=== PATIENT | female | born 1935 | race Caucasian/White ===

== ENCOUNTER → 2017-01-18 | Outpatient (CLI) | payer MEDICARE, BC ==
[~2017-01-18] MED LIST: FLUO20CA30 PO; LACT1CAP73 PO; LANS15CA5 PO; MELA3TAB30 PO; METF500T4 PO; METO25TA3 PO; MULT-1063 PO; OXYB5SYR2 PO; PRED5TAB PO; PRIM50TA30 PO
[2017-01-18 11:54] LABS: POTASSIUM 4.9 MEQ/L (3.6-5)
== END ==
LOC: LAB 11:15
PROVIDERS: ATTEND Family Medicine
DX: E87.5 Hyperkalemia (principal)
CPT/HCPCS: 36415; 84132

== ENCOUNTER → 2017-01-20 | Outpatient (CLI) | payer MEDICARE, BC ==
[2017-01-20 14:22] LABS: ANION GAP 8 MEQ/L (5-15); BUN/CREATININE RATIO 21 RATIO (6-26); CHLORIDE 100 MEQ/L (98-107); CO2 - CARBON DIOXIDE 28 MEQ/L (22-30); CREATININE 1.5 MG/DL (0.7-1.2); GLOMERULAR FILTRATION RATE 33; GLUCOSE 120 MG/DL (65-110); SODIUM 136 MEQ/L (134-144)
== END ==
LOC: LAB 13:39
PROVIDERS: ATTEND Family Medicine
DX: E87.5 Hyperkalemia (principal)
CPT/HCPCS: 36415; 80048

== ENCOUNTER 2017-02-04 13:13 | Emergency (ER) | payer MEDICARE, BC ==
[~2017-02-04] VITALS: Ht 152.4 cm; Wt 61.8 kg
[2017-02-04 13:13] VITALS: Ht 152.4 cm; Wt 61.8 kg
--- OUTSIDE RECORDS SUMMARY | 2017-02-04 13:17 | XMS REPORT ---
Author Author Tra Henderson Organization [facility] Address [address] [place] [address] Care Team Providers Care Supply Chain Logistics Manager Name Role Phone Tra Henderson Unavailable [phone] PROBLEMS Type Condition ICD9-CM Code EJY91-IV Code Onset Dates Condition Status SNOMED Code Problem Chest discomfort R07.89 Active 890331548 Problem Essential (primary) hypertension I10 Active 22506703 Assessment Chest discomfort R07.89 Dec, Active 569914984 Problem Type 2 diabetes mellitus without complications E11.9 Active 861892997 Problem Major depressive disorder, single episode, unspecified F32.9 Active [id number] ALLERGIES Substance Reaction Event Type Date Status cipro Unknown Non Drug Allergy Dec, Active Mobic Unknown Non Drug Allergy Dec, Active Macrobid Unknown Non Drug Allergy Dec, Active OxyIR Unknown Non Drug Allergy Dec, Active Calcium Unknown Non Drug Allergy Dec, Active Penicillin Unknown Non Drug Allergy Dec, Active Codeine Unknown Non Drug Allergy Dec, Active Darvon Unknown Non Drug Allergy Dec, Active Morphine Unknown Non Drug Allergy Dec, Active SOCIAL HISTORY No smoking Hx information available PLAN OF CARE VITAL SIGNS Height 5 ft 2 in in 2016-12-22 Weight 131 lbs 2016-12-22 BMI 23.96 kg/m2 2016-12-22 Oximetry 95% % 2016-12-22 Heart Rate 56 /min 2016-12-22 Blood pressure systolic 128 mm Hg 2016-12-22 Blood pressure diastolic 68 mm Hg 2016-12-22 MEDICATIONS Medication Instructions Dosage Frequency Start Date End Date Duration Status Metoprolol Tartrate 25 MG Orally Twice a day .5 tablet 12h Active Aspirin 81 MG Orally Once a day 1 tablet 24h Active Fluoxetine HCl 20 MG Orally Once a day 1 capsule in the morning 24h Active Prednisone 5 MG Orally Once a day 1 tablet with food or milk 24h Active Vitamin D3 2000 UNIT Orally Once a day 1 capsule 24h Active Ondansetron HCl 4 MG Orally four times daily 1 tablet Active Omeprazole 40 MG Orally Once a day 1 capsule 24h Active Primidone 50 MG Orally qhs 2 tab Active Metformin HCl 500 MG Orally Once a day 1 tablet with meals 24h Active Sulfamethoxazole-TMP DS 400 mg 1 tablet 24h Active RESULTS Name Result Date Reference Range AtriaECW PROCEDURES Procedure Date Ordered Related Diagnosis Body Site ELECTROCARDIOGRAM, COMPLETE Dec 22, 2016 Office Visit, Est Pt., Level 4 Dec 22, 2016 IMMUNIZATIONS No Known Immunizations
--- OUTSIDE RECORDS SUMMARY | 2017-02-04 13:17 | XMS REPORT | Continuity of Care Document ---
Author Author [facility] Organization [facility] Address Unknown Phone Unavailable Support Name Relationship Address Phone MEY OLIVER MD Caregiver [address] [place] [address] Unavailable TIFFANIE BOWIE MD Caregiver [address] [place] [address] Unavailable RICK HOLLAND Next Of Kin [address] [place] [address] Insurance Providers Guarantor BishopCorey Pritesh Address [address] [place] [address] Email DENIED 16 Payer [facility] Policy Number [id number] Subscriber's Name Corey Holland Relationship 18 Self Group Number [id number] Payer Medicare Policy Number [id number] Subscriber's Name Corey Holland Relationship 18 Self Advance Directives Directive Response Recorded Date/Time Ordered Resuscitation Status Full Code, unverified 12/28/16 1:01pm Resuscitation Documents on File No 12/29/16 8:12am DPOA for Healthcare Only No 12/29/16 8:12am Living Will No 12/29/16 8:12am Problems Active Problems Medical Problem Onset Date Status Fall on same level Unknown Acute Fracture of orbital floor, blow-out, left, closed Unknown Acute Laceration of left orbit Unknown Acute Medications Current Home Medications Medication Dose Units Route Directions Days Qty Instructions Start Date Fluoxetine Hcl (Prozac) 20 Mg Capsule 1 Cap Oral Bedtime 03/31/15 Lactobacillus Combination No.4 (Probiotic) 1 Each Capsule 1 Cap Oral Daily 11/09/15 Lansoprazole (Prevacid) 15 Mg Capsule. 1 Cap Oral Daily 30 Capsule 11/09/15 Melatonin 3 Mg Tablet 1 Tab Oral Bedtime 30 Tablet 12/29/16 Metformin Hcl 500 Mg Tablet 1 Tab Oral Daily 90 11/09/15 Metoprolol Succinate (Toprol Xl) 25 Mg Tab.er.24h 1 Tab Oral Twice A Day 03/31/15 Multivitamin (One Daily Multivitamin) 1 Each Tablet 1 Tab Oral Daily 03/31/15 Oxybutynin (Oxybutynin Chloride) 5 Mg/5 Ml Syrup 5 Mg Oral Twice A Day Take 5 mg, by mouth, twice a day. 12/29/16 Prednisone 5 Mg Tablet 1 Tab Oral Daily 90 11/09/15 Primidone 50 Mg Tablet 2 Tab Oral Bedtime 60 11/09/15 Social History Social History Problem Response Recorded Date/Time Onset Date Status Chewing Tobacco Status No 12/29/2016 8:19am Not Applicable Not Applicable Hx Substance Use No 12/29/2016 8:19am Not Applicable Not Applicable Hx Alcohol Use No 12/29/2016 8:19am Not Applicable Not Applicable Has the pt used tobacco in the last 12 months No 12/29/2016 8:19am Not Applicable Not Applicable Tobacco Usage none 04/07/2015 9:27pm Not Applicable Not Applicable Query Response Start Date Stop Date Smoking Status Former smoker Hospital Discharge Instructions No hospital discharge instructions. Plan of Care Discharge Date 12/29/16 9:20am Prescriptions See Medication Section Functional Status Query Response Date Recorded Ability to complete ADL's impeded by No change December 29, 2016 8:12am Allergies, Adverse Reactions, Alerts Allergen Type Severity Reaction Status Last Updated Penicillin Allergy Intermediate HIVES/RASH Active 12/29/16 Morphine Allergy Intermediate VOMITING Active 12/29/16 Codeine Allergy Intermediate "WOOZY" Active 12/29/16 Ciprofloxacin Adverse Reaction Intermediate NAUSEA Active 12/29/16 grass pollen Allergy Unknown Active 12/29/16 Immunizations Query Response on File Recorded Date/Time Hx Influenza Vaccination No 12/29/16 8:19am Hx Pneumococcal Vaccination Y 201412/29/16 8:19am Hx Influenza Vaccination No 12/29/16 8:19am Hx Tetanus Diptheria Y 03/31/15 03/31/15 12:36am Vital Signs Acute Vital Signs Vital Response Date/Time Temperature (Fahrenheit) 98.3 deg F (96.8 - 99.1) 12/29/2016 7:56am Temperature (Calculated Celsius) 36.23948 degrees C (36.0 - 37.3) 12/29/2016 7:56am Temperature Source Oral 12/29/2016 7:56am Pulse Rate (adult) 47 bpm (60 - 100) 12/29/2016 7:56am Respiratory Rate 16 breaths/min (10 - 20) 12/29/2016 7:56am O2 Sat by Pulse Oximetry 99 % (90 - 100) 12/29/2016 7:56am Oxygen Delivery Method Room Air 12/29/2016 7:56am Blood Pressure 146/66 mm Hg 12/29/2016 7:56am Blood Pressure Source Automatic Cuff 12/29/2016 7:56am Height (Feet) 4 feet 12/29/2016 7:56am Height (Inches) 11.00 inches 12/29/2016 7:56am Weight (Kilograms) 60.200 kg 12/29/2016 7:56am Body Mass Index (BMI) 26.8 12/29/2016 7:56am Results Laboratory Results Test Name Result Units Flags Reference Collection Date/Time Result Date/ Time Comments White Blood Count 7.2 T/MM3 4.5-11.0 12/29/2016 8:15am 12/29/2016 8: 23am Red Blood Count 4.13 M/MM3 4.00-5.20 12/29/2016 8:15am 12/29/2016 8: 23am Hemoglobin 13.1 GM/DL 12-16 12/29/2016 8:1512/29/2016 8:23am Hematocrit 39.1 % 36-46 12/29/2016 8:1512/29/2016 8:23am Mean Corpuscular Volume 94.7 UM3 80-100 12/29/2016 8:15am 12/29/2016 8: 23am Mean Corpuscular Hemoglobin 31.7 UUG 26-34 12/29/2016 8:15am 2016 8:23am Mean Corpuscular Hemoglobin Concent 33.5 GM/DL 31-37 12/29/2016 8:1512/29/2016 8:23am RDW Standard Deviation 39.8 FL 36.9-50.2 12/29/2016 8:15am 12/29/2016 8 :23am Platelet Count 122 T/MM3 L 130-400 12/29/2016 8:15am 12/29/2016 8:23am Mean Platelet Volume 9.7 UM3 9.4-12.4 12/29/2016 8:15am 12/29/2016 8: 23am Neutrophils (%) (Auto) 54.1 % 33-66 12/29/2016 8:1512/29/2016 8: 23am Lymphocytes (%) (Auto) 28.0 % 23-45 12/29/2016 8:1512/29/2016 8: 23am Monocytes (%) (Auto) 11.6 % H 0-9.0 12/29/2016 8:1512/29/2016 8:23am Eosinophils (%) (Auto) 5.0 % H 0-4 12/29/2016 8:1512/29/2016 8:23am Basophils (%) (Auto) 0.7 % 0-2 12/29/2016 8:1512/29/2016 8:23am Immature Granulocyte % (Auto) 0.6 % H 0.0-0.5 12/29/2016 8:2016 8:23am Absolute Neutrophils (auto) 3.9 T/MM3 1.8-7.7 12/29/2016 8:152016 8:23am Absolute Lymphocytes (auto) 2.0 T/MM3 1-4.8 12/29/2016 8:152016 8:23am Absolute Monocytes (auto) 0.8 T/MM3 0-0.8 12/29/2016 8:1512/29/2016 8:23am Absolute Eosinophils (auto) 0.4 T/MM3 0-0.5 12/29/2016 8:152016 8:23am Absolute Basophils (auto) 0.1 T/MM3 0-0.2 12/29/2016 8:12/29/2016 8:23am Absolute Immature Granulocyte (auto 0.04 T/MM3 H 0.00-0.03 12/29/2016 8: 12/29/2016 8:23am Icterus Index < 2 0-7 12/29/2016 8:1512/29/2016 8:32am Chemistry Specimen Hemolysis 46 H 0-25 12/29/2016 8:1512/29/2016 8: 32am 26-70: Specimen Exhibited Slight Hemolysis - can falsely elevate K (Potassium) and Urine Protein. Turbidity < 20 0-20 12/29/2016 8:1512/29/2016 8:32am Sodium Level 139 MEQ/L 134-144 12/29/2016 8:15am 12/29/2016 8:32am Potassium Level 5.0 MEQ/L 3.6-5 12/29/2016 8:15am 12/29/2016 8:32am Chloride Level 104 MEQ/L 98-107 12/29/2016 8:15am 12/29/2016 8:32am Carbon Dioxide Level 28 MEQ/L 22-30 12/29/2016 8:15am 12/29/2016 8: 32am Anion Gap 7 MEQ/L 5-15 12/29/2016 8:15am 12/29/2016 8:32am Blood Urea Nitrogen 34.0 MG/DL H 7-17 12/29/2016 8:15am 12/29/2016 8: 32am Creatinine 1.3 MG/DL H 0.7-1.2 12/29/2016 8:15am 12/29/2016 8:32am BUN/Creatinine Ratio 26 RATIO 6-26 12/29/2016 8:15am 12/29/2016 8:32am Glomerular Filtration Rate Calc 39 12/29/2016 8:15am 12/29/2016 8: 32am Glucose Level 85 MG/DL 65-110 12/29/2016 8:15am 12/29/2016 8:32am Calculated Osmolality 275 MOSM/KG 261-280 12/29/2016 8:15am 12/29/2016 8:32am Calcium Level 8.9 MG/DL 8.4-10.2 12/29/2016 8:15am 12/29/2016 8:32am Procedures Procedure Status Date Provider(s) Routine venipuncture Completed 11/29/16 Assay of serum potassium Completed 11/29/16 Routine venipuncture Completed 12/01/16 Assay of serum potassium Completed 12/01/16 Ectropion repair Active 12/29/16 TIFFANIE BOWIE MD Encounters Encounter Location Arrival/Admit Date Discharge/Depart Date Attending Provider Departed [facility] 12/29/16 7:28am 12/29/16 9: 20am TIFFANIE BOWIE MD Registered [facility] 12/01/16 10:02am MEY OLIVER MD Registered [facility] 11/29/16 12:06pm MEY OLIVER MD
--- NOTE | 2017-02-04 13:30 | NUR ---
PROVIDER Winter FIELDS COLD ROLL INSPECTOR IN TO SEE PATIENT.
--- NOTE | 2017-02-04 13:39 | ERPDOC ---
Departure Disposition Decision Date: Feb 04, 2017 Disposition Decision Time: 15:22 (JOSE J FIELDS APRN) Disposition: 01 DISCHARGED HOME, SELF-CARE Impression Impression (JOSE J FIELDS APRN) Impression: Primary Impression: Rupture of biceps tendon Additional Impression: Transaminitis Condition: Stable Seen By: Mid-level only (JOSE J FIELDS APRN) Referrals: MEY OLIVER MD (Family) Patient Instructions: Splint Care (ED), Tendon Rupture (ED) Problems/Meds/Labs Reviewed?: Yes Medications reviewed and manag: Yes (JOSE J FIELDS APRN) Additional Instructions: 1. You need to call Dr. Lynch office in the morning and tell them you were seen in the ER today for a suspected bicep tendon injury and that the ER provider spoke with Rodo Uriostegui who recommended coming in to the clinic within 2 days for an evaluation. Dr. Norris's phone number is [phone]. 2. Take Tramadol as prescribed for pain. DO NOT TAKE ANY IBUPROFEN OR TYLENOL. 3. You need to ice your arm as much as you can for 15-20 minutes every 2 hours while awake. Keep arm elevated or in sling. 4. You need to call Dr. Tomas office in the morning and tell him you were seen in ER and your liver enzymes were elevated and that you were advised to stop taking Tylenol and your stain. You need to stop taking Tylenol and the atorvastatin as they can cause increased liver enzymes. Follow up care ordered?: Yes Mental Status: Alert, Oriented (JOSE J FIELDS APRN) Scripts Tramadol HCl (Ultram) 50 Mg Tablet 50 MG PO Q4HR Y for PAIN, #14 TAB Take 1/2 - 1 tablet, by mouth, every 4 hours as needed for pain. Prov: JOSE J FIELDS APRN 02/04/17 HPI - Upper Extremity General Chief Complaint: Upper Extremity Injury Stated Complaint: SWOLLEN BICEPT, UPPER ABD PAIN Time Seen by MD: 13:27 Source: patient, family Exam Limitations: no limitations (JOSE J FIELDS APRN) Time Seen by MD: 13:27 (ARIAN CARRANZA MD) HPI - Upper Extremity Initial Comments Payton is an 81 year old female who reports injury to her left upper arm a few days ago when trying to get up from a chair, screamed in pain because it hurt at time of injury, but then subsided, was just sore. A few days later she went to pull up a blanket over herself and felt more pain to that arm and it then swelled up and bruised excessively. patient is on plavix for coronary artery stents. When son came and saw her arm he decided to bring her to the ER for evaluation. Concurrently son reports patient had complained of severe epigastric pain last night and called him. She does take a daily PPI. Denies n/v /d. Denies bloody or dark stools. Denies weakness or dizziness. Lives next door to her son. Occurred At: home Onset/Timing: Gradual Duration: 1 week Pain/Severity Scale: Now: 6/10 (arm) Pain/Injury Location: left arm 1 - ecchymosis and swelling Method of Injury/Context: twisted Quality: sharpness Associated Symptoms: weakness (JOSE J FIELDS APRN) Allergies: Coded Allergies: Penicillins (Verified Allergy, Intermediate, HIVES/RASH, 02/04/17) codeine (Verified Allergy, Intermediate, "WOOZY", 02/04/17) morphine (Verified Allergy, Intermediate, VOMITING, 02/04/17) grass pollen (Verified Allergy, Unknown, 02/04/17) PER H&P ciprofloxacin (Verified Adverse Reaction, Intermediate, NAUSEA, 02/04/17) Past History Past Medical History Metabolic: hypertension ENMT: cataracts Cardiac: CAD GI: constipation Female: UTI Neurological: fibromyalgia Hematologic: anemia Psychological: anxiety, depression (JOSE J FIELDS APRN) Surgical History General: appendix, gallbladder, tonsils Cardiac: cardiac cath, cardiac stent Reproductive/: hysterectomy, other (cystocele) Joint: hip (bilat), knee (left) (JOSE J FIELDS APRN) Vaccines Hx Influenza Vaccination: No Hx Pneumococcal Vaccination: Yes (2014) Hx Tetanus Diptheria: Yes (03/31/15) (JOSE J FIELDS APRN) Social History Smoking Status: Never smoker Does patient use chewing tobac: No Second Hand Exposure: No Substance Use Type: does not use Alcohol Intake: none Marital Status: Housing: house Household Members: none (JOSE J FIELDS APRN) Review of Systems Constitutional Constitutional: weakness (left arm), DENIES: dizziness, fever (FIELDS,JOSE J LINING CLOSER ) ENMT Mouth/Throat: DENIES: sore throat (FIELDS,JOSE J LINING CLOSER) Cardiovascular Cardiac: DENIES: chest pain, dyspnea on exertion (FIELDS,JOSE J LINING CLOSER) Pulmonary Respiratory: DENIES: cough, dyspnea (FIELDSJOSE J LINING CLOSER) GI Upper Abdomen: DENIES: nausea, vomiting Lower Abdomen: constipation, DENIES: diarrhea (FIELDS,JOSE J LINING CLOSER) Musculoskeletal General: pain (left arm), weakness (left arm) (DIAMONDJOSE J LINING CLOSER) Integumentary Skin: other (bruising left upper arm), DENIES: rash (FIELDS,JOSE J LINING CLOSER) Neurological General: weakness (left arm), DENIES: headache (FIELDS,JOSE J LINING CLOSER) Psychiatric Psychiatric: anxiety, depression (HALIE FIELDSARA LINING CLOSER) Hematologic/Lymphatic Hematologic/Lymphatic: anemia, easy bruising (DIAMONDJOSE J LINING CLOSER) All other Systems All Other Systems: Reviewed and Negative (JOSE J FIELDS LINING CLOSER) Physical Exam General General Nourishment: well nourished, well developed, appears stated age, no acute distress (HALIE FIELDSARA LINING CLOSER) Vitals and Pain First Documented Vital Signs Date Time Temp Pulse Resp B/P Pulse Ox O2 Delivery O2 Flow Rate FiO2 02/04/17 13:13 100.4 62 16 145/65 98 Room Air (ARIAN CARRANZA MD) Vitals and Pain Weight: Kilograms: Height (feet): 4 Height (inches): 11.00 Triage Pain Scale: (HALIE FIELDSARA LINING CLOSER) Eyes (brief) Eyes Brief: not found: scleral icterus (HALIE FIELDSARA LINING CLOSER) ENMT (brief) ENMT Brief: FOUND: mucosa moist (DIAMONDJOSE J LINING CLOSER) Respiratory (brief) Respiratory: FOUND: clear all hoang, equal bilaterally (FIELDS,JOSE J LINING CLOSER) Cardiovascular (brief) Cardiac: FOUND: regular rate, regular rhythm (DIAMONDJOSE J LINING CLOSER) Abdomen (brief) Abdominal Brief: FOUND: bowel normo active x4, soft, tender (mild epigastric) ( DIAMOND,JOSE J LINING CLOSER) Musculoskeletal (brief) Musculoskeletal Brief: FOUND: tenderness (left antecubital insertion tender, widespread upper arm ecchymosis, no ability to use bicep, swollen firm area to upper arm) (JOSE J FIELDS APRN) Integumentary (brief) Integumentary Brief: FOUND: dry, other (bruising left upper arm), pink, warm, NOT FOUND: rash (JOSE J FIELDS APRN) Psychiatric (brief) Psychiatric Brief: FOUND: alert, attentive, normal affect, oriented (JOSE J FIELDS APRN) Differential Diagnoses Considering: Fracture, Flexor Tendon Injury, Trauma, Other (JOSE J FIELDS APRN) Procedures Procedures Performed Procedures Performed: Splinting (JOSE J FIELDS APRN) Splinting Procedure Splint : Site: left upper arm Pre-placement NV: FOUND: cap refill < 3 sec, good movement, good sensation Hand-Made Type: orthoglass Splint: posterior arm Post-placement NV: FOUND: cap refill < 3 sec, good movement, good sensation Applied by: PA/RODY Comments Sling applied (JOSE J FIELDS APRN) Progress Results/Orders Orders Procedure Category Date Status Time Elbow Left 2 View RAD 02/04/17 Resulted Humerus Left 2 View RAD 02/04/17 Resulted Cbc W/Auto LAB 02/04/17 Complete Diff-Reflex Manual Cmp - Comprehensive LAB 02/04/17 Complete Metabolic Lipase LAB 02/04/17 Complete EKG EKG 02/04/17 Taken Troponin I W LAB 02/04/17 Complete Hemolysis Index Mag-Al + Sim Xs PHA 02/04/17 Complete (Maalox Plus Xs) 13:45 Platelet Function LAB 02/04/17 Complete P2y12 13:43 Hepatitis Acute Panel LAB 02/04/17 In Process - Batch 14:38 (ARIAN CARRANZA MD) Orders Procedure Category Date Status Time Elbow Left 2 View RAD 02/04/17 Resulted Humerus Left 2 View RAD 02/04/17 Resulted Cbc W/Auto LAB 02/04/17 Complete Diff-Reflex Manual Cmp - Comprehensive LAB 02/04/17 Complete Metabolic Lipase LAB 02/04/17 Complete EKG EKG 02/04/17 Logged Troponin I W LAB 02/04/17 Complete Hemolysis Index Mag-Al + Sim Xs PHA 02/04/17 Complete (Maalox Plus Xs) 13:45 Platelet Function LAB 02/04/17 Complete P2y12 13:43 Hepatitis Acute Panel LAB 02/04/17 In Process - Batch 14:38 (JOSE J FIELDS APRN) Lab Results Laboratory Tests Test 02/04/17 13:39 02/04/17 13:44 02/04/17 14:16 Hepatitis A IgM Antibody Pending Hepatitis B Surface Antigen Pending Hepatitis B Core IgM Antibody Pending Hepatitis C Antibody Pending White Blood Count 7.0T/MM3 Red Blood Count 3.74M/MM3 Hemoglobin 12.0GM/DL Hematocrit 35.8% Mean Corpuscular Volume 95.7UM3 Mean Corpuscular Hemoglobin 32.1UUG Mean Corpuscular Hemoglobin Concent 33.5GM/DL RDW Standard Deviation 42.6FL Platelet Count 245T/MM3 Mean Platelet Volume 9.1UM3 Immature Granulocyte % (Auto) 0.3% Neutrophils (%) (Auto) 71.1% Lymphocytes (%) (Auto) 15.6% Monocytes (%) (Auto) 9.0% Eosinophils (%) (Auto) 3.6% Basophils (%) (Auto) 0.4% Absolute Immature Granulocyte (auto 0.02T/MM3 Absolute Neutrophils (auto) 5.0T/MM3 Absolute Lymphocytes (auto) 1.1T/MM3 Absolute Monocytes (auto) 0.6T/MM3 Absolute Eosinophils (auto) 0.3T/MM3 Absolute Basophils (auto) 0.0T/MM3 Turbidity < 20 Sodium Level 134MEQ/L Potassium Level 5.1MEQ/L Chloride Level 95MEQ/L Carbon Dioxide Level 30MEQ/L Anion Gap 9MEQ/L Blood Urea Nitrogen 36.0MG/DL Creatinine 1.3MG/DL Glomerular Filtration Rate Calc 39 BUN/Creatinine Ratio 28RATIO Glucose Level 134MG/DL Calculated Osmolality 268MOSM/KG Calcium Level 8.4MG/DL Total Bilirubin 0.90MG/DL Icterus Index < 2 Aspartate Amino Transf (AST/SGOT) 953U/L Alanine Aminotransferase (ALT/SGPT) 489U/L Alkaline Phosphatase 181U/L Troponin I < 0.012ng/ml Total Protein 6.3G/DL Albumin 3.6G/DL Globulin 2.7G/DL Albumin/Globulin Ratio 1.3RATIO Lipase 211U/L Chemistry Specimen Hemolysis < 15 Platelet Function P2Y12 React Units 127PRU (ARIAN CARRANZA MD) Lab Results Laboratory Tests Test 02/04/17 13:39 02/04/17 13:44 02/04/17 14:16 Hepatitis A IgM Antibody Pending Hepatitis B Surface Antigen Pending Hepatitis B Core IgM Antibody Pending Hepatitis C Antibody Pending White Blood Count 7.0T/MM3 Red Blood Count 3.74M/MM3 Hemoglobin 12.0GM/DL Hematocrit 35.8% Mean Corpuscular Volume 95.7UM3 Mean Corpuscular Hemoglobin 32.1UUG Mean Corpuscular Hemoglobin Concent 33.5GM/DL RDW Standard Deviation 42.6FL Platelet Count 245T/MM3 Mean Platelet Volume 9.1UM3 Immature Granulocyte % (Auto) 0.3% Neutrophils (%) (Auto) 71.1% Lymphocytes (%) (Auto) 15.6% Monocytes (%) (Auto) 9.0% Eosinophils (%) (Auto) 3.6% Basophils (%) (Auto) 0.4% Absolute Immature Granulocyte (auto 0.02T/MM3 Absolute Neutrophils (auto) 5.0T/MM3 Absolute Lymphocytes (auto) 1.1T/MM3 Absolute Monocytes (auto) 0.6T/MM3 Absolute Eosinophils (auto) 0.3T/MM3 Absolute Basophils (auto) 0.0T/MM3 Turbidity < 20 Sodium Level 134MEQ/L Potassium Level 5.1MEQ/L Chloride Level 95MEQ/L Carbon Dioxide Level 30MEQ/L Anion Gap 9MEQ/L Blood Urea Nitrogen 36.0MG/DL Creatinine 1.3MG/DL Glomerular Filtration Rate Calc 39 BUN/Creatinine Ratio 28RATIO Glucose Level 134MG/DL Calculated Osmolality 268MOSM/KG Calcium Level 8.4MG/DL Total Bilirubin 0.90MG/DL Icterus Index < 2 Aspartate Amino Transf (AST/SGOT) 953U/L Alanine Aminotransferase (ALT/SGPT) 489U/L Alkaline Phosphatase 181U/L Troponin I < 0.012ng/ml Total Protein 6.3G/DL Albumin 3.6G/DL Globulin 2.7G/DL Albumin/Globulin Ratio 1.3RATIO Lipase 211U/L Chemistry Specimen Hemolysis < 15 Platelet Function P2Y12 React Units 127PRU (DIAMOND,JOSE J LINING CLOSER) Medications Current ED Medications Al Hydroxide/Mg Hydroxide (Maalox Plus Xs) 30 ml O ONCE PO Last administered on 02/04/17t 15:05; Start 02/04/17 at 13:45; Stop 02/04/17 at 13:46; Status DC (ARIAN CARRANZA MD) Medications Current ED Medications Al Hydroxide/Mg Hydroxide (Maalox Plus Xs) 30 ml O ONCE PO Last administered on 02/04/17t 15:05; Start 02/04/17 at 13:45; Stop 02/04/17 at 13:46; Status DC (JOSE J FIELDS APRN) Progress Progress Patient's history and exam discussed with LINING CLOSER. Labs and Xrays reviewed. Agree with care given in ER and discharge plan as outlined. (ARIAN CARRANZA MD) EKG EKG : Rate: 60-100 Rhythm: sinus [place]: left QRS: non-specific block Intervals: normal ST/T: depressed, inverted Interpreted by: signing physician EKG Comments Depressed T waves in inferior leads (II,III,aVF)and inverted T waves with ST segment depression in inferior and lateral chest leads -- no prior EKG to compare. (ARIAN CARRANZA MD) Consult/PCP Consult/PCP #1: Physician Contacted: Rodo CRESPO Time Called: 14:30 Time of first response: 14:31 Type of discussion: Phone Consult/PCP Discussion Details Suspected bicep tendon rupture- rec posterior splint/sling f/u clinic Consult/PCP #2: Physician Contacted: Jeremie Zaman Unable to contact-checked out to hospitalist for weekend (JOSE J FIELDS APRN) Xray Xray #1: Xray: Elbow L Interpretation: Normal (no fracture, soft tissue swelling), Reviewed Written Report Xray #2: Xray: Humerus L Interpretation: Normal (soft tissue swelling), Reviewed Written Report (ARIAN CARRANZA MD) JOSE J FIELDS APRN Feb 04, 2017 13:39 ARIAN CARRANZA MD Feb 04, 2017 16:18
[2017-02-04] MEDS ORDERED: MAG-AL + SIM XS 30 ML UDC PO ONE (13:45)
[2017-02-04] MEDS ORDERED: METO25TA6 PO (13:47)
[2017-02-04] MEDS ORDERED: OXYB5TAB10 PO (13:47)
[2017-02-04] MEDS ORDERED: PRED1TAB PO (13:47)
[2017-02-04] MEDS ORDERED: CLOP75TA33 PO (13:49)
[2017-02-04] MEDS ORDERED: OMEP40CA52 PO (13:49)
[2017-02-04] MEDS ORDERED: ATOR20TA59 PO (13:49)
[2017-02-04] MEDS ORDERED: NITR0.4T PO (13:52)
[2017-02-04] MEDS ORDERED: ASPI-1085 PO (13:52)
[2017-02-04] MEDS ORDERED: ONDA-55 PO (13:52)
[2017-02-04] MEDS ORDERED: BIOT5000 PO (13:52)
[2017-02-04] MEDS ORDERED: CEPH500C2 PO (13:52)
[2017-02-04] MEDS ORDERED: CHOL100018 PO (13:53)
[2017-02-04 13:55] LABS: BASOPHILS % (AUTO) 0.4 % (0-2); EOSINOPHILS # (AUTO) 0.3 T/MM3 (0-0.5); EOSINOPHILS % (AUTO) 3.6 % (0-4); HCT - HEMATOCRIT 35.8 % (36-46); IMMATURE GRANULOCYTE # (AUTO) 0.02 T/MM3 (0.00-0.03); IMMATURE GRANULOCYTE % (AUTO) 0.3 % (0.0-0.5); LYMPHOCYTES # (AUTO) 1.1 T/MM3 (1-4.8); LYMPHOCYTES % (AUTO) 15.6 % (23-45); MEAN CORPUSCULAR HGB 32.1 UUG (26-34); MEAN CORPUSCULAR HGB CONC(MCHC 33.5 GM/DL (31-37); MEAN CORPUSCULAR VOLUME 95.7 UM3 (80-100); MEAN PLATELET VOLUME 9.1 UM3 (9.4-12.4); MONOCYTES # (AUTO) 0.6 T/MM3 (0-0.8); NEUTROPHILS % (AUTO) 71.1 % (33-66); RED BLOOD COUNT 3.74 M/MM3 (4.00-5.20)
[2017-02-04 14:01] LABS: ALBUMIN 3.6 G/DL (3.5-5.0); ALBUMIN/GLOBULIN RATIO 1.3 RATIO (1.1-2.2); ALKALINE PHOSPHATASE 181 U/L (38-126); ALT (SGPT) 489 U/L (9-52); ANION GAP 9 MEQ/L (5-15); BUN/CREATININE RATIO 28 RATIO (6-26); CALCIUM 8.4 MG/DL (8.4-10.2); CHLORIDE 95 MEQ/L (98-107); CO2 - CARBON DIOXIDE 30 MEQ/L (22-30); CREATININE 1.3 MG/DL (0.7-1.2); GLOMERULAR FILTRATION RATE 39; GLUCOSE 134 MG/DL (65-110); LIPASE 211 U/L (23-300); POTASSIUM 5.1 MEQ/L (3.6-5); SODIUM 134 MEQ/L (134-144); TOTAL PROTEIN 6.3 G/DL (6.3-8.2)
[2017-02-04 14:07] LABS: AST (SGOT) 953 U/L (14-36)
--- NOTE | 2017-02-04 14:26 | DI ---
Indication: ITS.REASON: INJURY, BRUISING PROCEDURE: HUMERUS LEFT 2 VIEW: Encounter: Initial Comparison: None Findings: There is no acute fracture, dislocation or malalignment identified. Apparent soft tissue swelling overlying the mid to distal humerus. Impression: No acute osseous abnormality. Soft tissue swelling. .
--- NOTE | 2017-02-04 14:27 | DI ---
Indication: ITS.REASON: INJURY, PAIN PROCEDURE: ELBOW LEFT 2 VIEW: Encounter: Initial Comparison: None Findings: There is no acute fracture, dislocation or malalignment identified. Impression: No acute osseous abnormality. .
[2017-02-04] MEDS ORDERED: TRAM50TA53 PO (15:30)
--- NOTE | 2017-02-04 15:40 | NUR ---
SPLINT JOI WRAPS REWRAPPED BECAUSE PT WAS COMPLAINING FINGERS WERE NUMB. FEELS BETTER NOW
--- NOTE | 2017-02-04 15:47 | NUR ---
DISMISSAL INSTRUCTIONS REVIEWED WITH PT. SHE VERBALIZES UNDERSTANDING. PT LIVES NEXT DOOR TO HER SON. DISCHARGED AMB
[2017-02-04 15:48] VITALS: BP 114/57; PULSE 60; RESP 16; TEMP 99.4; O2SAT 97
== END 2017-02-04 15:48 | disposition home or self-care (01) ==
LOC: ED 13:13
DX: S46.212A Strain of muscle, fascia and tendon of other parts of biceps, left arm, initial encounter (principal); R74.0 Nonspecific elevation of levels of transaminase and lactic acid dehydrogenase [LDH]; Z79.01 Long term (current) use of anticoagulants; X58.XXXA Exposure to other specified factors, initial encounter; Y93.9 Activity, unspecified; Y92.009 Unspecified place in unspecified non-institutional (private) residence as the place of occurrence of the external cause; Y99.8 Other external cause status
CPT/HCPCS: 36415; 73060; 73070; 80053; 80074; 83690; 84484; 85025; 85576; 93005; 99283; A9270

== ENCOUNTER → 2017-02-06 | Outpatient (CLI) | payer MEDICARE, BC ==
[~2017-02-06] MED LIST changes: +ASPI-1085 PO; +ATOR20TA59 PO; +BIOT5000 PO; +CEPH-583 PO; +CEPH500C2 PO; +CHOL100018 PO; +CLOP75TA33 PO; -METF500T4 PO; -METO25TA3 PO; +METO25TA6 PO; -MULT-1063 PO; +MULT-933 PO; +NITR0.4T PO; +OMEP40CA52 PO; +ONDA-55 PO; -OXYB5SYR2 PO; +OXYB5TAB10 PO; +PRED1TAB PO; -PRED5TAB PO; +TRAM50TA53 PO; +[UNRECOGNIZED DRUG - CODE] PO
--- NOTE | 2017-02-06 10:16 | DI ---
Indication: ITS.REASON: R10.13 EPIGASTRIC PAIN; R74.8 Abnormal levels of other serum enzy PROCEDURE: US ABDOMEN COMPLETE: Encounter: Initial Comparison: None Technique: Grayscale and color Doppler sonographic imaging of the abdomen was performed. Findings: Hepatic parenchyma is homogeneous without evidence for focal mass. The gallbladder is surgically absent. Mild intra and extrahepatic biliary system prominence compatible with prior cholecystectomy with the common duct measuring 7 mm in dimension. Visualized portions of the head and body of the pancreas are unremarkable. Both kidneys are present without collecting system dilatation. The right measures 2.6 cm in length and left measures 8.1 cm. The spleen is unremarkable. The visualized portions of the aorta and IVC are unremarkable apart from scattered atherosclerotic plaque in the aorta. No free fluid. Impression: Negative abdominal sonogram. .
== END ==
LOC: IMA 09:12
PROVIDERS: ATTEND Family Medicine
DX: R10.13 Epigastric pain (principal); R74.8 Abnormal levels of other serum enzymes

== ENCOUNTER 2017-02-09 06:03 | Day surgery (SDC) | payer MEDICARE, BC ==
--- NOTE | 2017-02-08 08:54 | NUR ---
CARDIAC/FALLS PATIENT REPORTS THAT SHE HAD A CARDIAC CATH WITH TWO STENTS PLACED & HAS CARDIAC CLEARANCE FROM CARDIAC DR, PATIENT ALSO REPORTS SEVERAL FALLS IN PAST WEEKS WITH ONE RECENT ONE ON February AND IS VERY BRUISED ON LEFT ARM DUE TO A RUPTURE OF BICEPS TENDON AND HAS SEEN DR PENNINGTON FOR THIS, PATIENT REPORTS USING WRIGHT TO HELP HER GET AROUND.
[~2017-02-09] VITALS: Ht 152.4 cm; Wt 60.7 kg
[~2017-02-09 06:03] MED LIST changes: -CEPH500C2 PO; -LANS15CA5 PO; -ONDA-55 PO
--- OUTSIDE RECORDS SUMMARY | 2017-02-09 06:08 | XMS REPORT | Continuity of Care Document ---
Author Author [facility] Organization [facility] Address Unknown Phone Unavailable Support Name Relationship Address Phone MEY OLIVER MD Caregiver [address] [place] [address] Unavailable ARIAN CARRANZA MD Caregiver [address] [place] [address] [place] [address] Unavailable RICK HOLLAND Next Of Kin [address] [place] [address] Insurance Providers Guarantor Corey Holland Address [address] [place] [address] -SON Email DENIED 02-04-17 [facility] Policy Number [id number] Subscriber's Name Corey Holland Relationship 18 Self Group Number [id number] Payer Medicare Policy Number [id number] Subscriber's Name Corey Holland Relationship 18 Self Chief Complaint and Reason for Visit Chief Complaint Upper Extremity Injury Reason for Visit [id number] Rupture of biceps tendon Problems Active Problems Medical Problem Onset Date Status Fall on same level Unknown Acute Fracture of orbital floor, blow-out, left, closed Unknown Acute Laceration of left orbit Unknown Acute Past Problems Medical Problem Onset Date Rupture of biceps tendon Unknown Transaminitis Unknown Medications Current Home Medications Medication Dose Units Route Directions Days Qty Instructions Start Date Aspirin (Aspirin Ec) 81 Mg Tablet. 81 Mg Oral Daily 02/04/17 Atorvastatin Calcium 20 Mg Tablet 20 Mg Oral Bedtime 02/04/17 Biotin 5,000 Mcg Tab.rapdis 5,000 Mcg Oral Daily 02/04/17 Cephalexin 500 Mg Capsule 500 Mg Oral Twice A Day for Uti Cholecalciferol (Vitamin D3) Unknown Strength Tablet Unknown Dose Oral Daily 02/04/17 Clopidogrel Bisulfate (Clopidogrel) 75 Mg Tablet 75 Mg Oral Daily 02/04/17 Fluoxetine Hcl (Prozac) 20 Mg Capsule 20 Mg Oral Daily 03/31/15 Lactobacillus Combination No.4 (Probiotic) 1 Each Capsule 1 Cap Oral Daily 11/09/15 Lansoprazole (Prevacid) 15 Mg Capsule. 15 Mg Oral Daily Melatonin 3 Mg Tablet 3 Mg Oral Bedtime as needed for Insomnia Metoprolol Tartrate 25 Mg Tablet 12.5 Mg Oral Twice A Day Nitroglycerin (Nitrostat) 0.4 Mg Tablet 0.4 Mg Oral Every 5 Minutes X 3 as needed for Chest Pain 02/04/17 Omeprazole 40 Mg Capsule. 40 Mg Oral Before Breakfast 02/04/17 Ondansetron Hcl 4 Mg Tablet 4 Mg Oral Every 6 Hours as needed for Nausea 02/04/17 Oxybutynin Chloride 5 Mg Tablet 10 Mg Oral Twice A Day 02/04/17 Prednisone 1 Mg Tablet 4 Mg Oral Daily 02/04/17 Primidone 50 Mg Tablet 100 Mg Oral Bedtime 11/09/15 Tramadol Hcl (Ultram) 50 Mg Tablet 50 Mg Oral Every 4 Hours as needed for Pain 14 Tablet Take 1/2 - 1 tablet, by mouth, every 4 hours as needed for pain. 02/04/17 Social History Social History Problem Response Recorded Date/Time Onset Date Status Hx Substance Use No 02/04/2017 2:11pm Not Applicable Not Applicable Hx Alcohol Use No 02/04/2017 2:11pm Not Applicable Not Applicable Has the pt used tobacco in the last 12 months No 12/29/2016 8:19am Not Applicable Not Applicable Tobacco Usage none 04/07/2015 9:27pm Not Applicable Not Applicable Query Response Start Date Stop Date Smoking Status Never smoker Hospital Discharge Instructions No hospital discharge instructions. Plan of Care Discharge Date 02/04/17 3:48pm Disposition 01 DISCHARGED HOME, SELF-CARE Condition at Discharge Stable Instructions/Education Provided Splint Care (ED) Tendon Rupture (ED) Prescriptions See Medication Section Referrals MEY OLIVER MD Address: [address] [place] [id number] Additional Instructions/Education 1. You need to call Dr. Lynch office in the morning and tell them you were seen in the ER today for a suspected bicep tendon injury and that the ER provider spoke with Rodo Uriostegui who recommended coming in to the clinic within 2 days for an evaluation. Dr. Norris's phone number is [phone]. 2. Take Tramadol as prescribed for pain. DO NOT TAKE ANY IBUPROFEN OR TYLENOL. 3. You need to ice your arm as much as you can for 15-20 minutes every 2 hours while awake. Keep arm elevated or in sling. 4. You need to call Dr. Tomas office in the morning and tell him you were seen in ER and your liver enzymes were elevated and that you were advised to stop taking Tylenol and your stain. You need to stop taking Tylenol and the atorvastatin as they can cause increased liver enzymes. Functional Status No functional status results. Allergies, Adverse Reactions, Alerts Allergen Type Severity Reaction Status Last Updated Penicillin Allergy Intermediate HIVES/RASH Active 02/04/17 Morphine Allergy Intermediate VOMITING Active 02/04/17 Codeine Allergy Intermediate "WOOZY" Active 02/04/17 Ciprofloxacin Adverse Reaction Intermediate NAUSEA Active 02/04/17 grass pollen Allergy Unknown Active 02/04/17 Immunizations Query Response on File Recorded Date/Time Hx Influenza Vaccination No 12/29/16 8:19am Hx Pneumococcal Vaccination Y 201412/29/16 8:19am Hx Influenza Vaccination No 12/29/16 8:19am Hx Tetanus Diptheria Y 03/31/15 03/31/15 12:36am Tdap Vaccine Hx NO BROKEN SKIN 02/04/17 2:12pm Vital Signs Acute Vital Signs Vital Response Date/Time Temperature (Fahrenheit) 99.4 deg F (96.8 - 99.1) 02/04/2017 3:48pm Temperature (Calculated Celsius) 37.08529 degrees C (36.0 - 37.3) 02/04/2017 3:48pm Temperature Source Oral 12/29/2016 7:56am Pulse Rate (adult) 60 bpm (60 - 100) 02/04/2017 3:48pm Respiratory Rate 16 breaths/min (10 - 20) 02/04/2017 3:48pm O2 Sat by Pulse Oximetry 97 % (90 - 100) 02/04/2017 3:48pm Oxygen Delivery Method Room Air 12/29/2016 7:56am Blood Pressure 114/57 mm Hg 02/04/2017 3:48pm Blood Pressure Source Automatic Cuff 12/29/2016 7:56am Height (Feet) 5 feet 02/04/2017 1:13pm Height (Inches) 0 inches 02/04/2017 1:13pm Weight (Kilograms) 61.800 kg 02/04/2017 1:13pm Body Mass Index (BMI) 26.0 02/04/2017 1:13pm Results Laboratory Results Test Name Result Units Flags Reference Collection Date/Time Result Date/ Time Comments White Blood Count 7.0 T/MM3 4.5-11.0 02/04/2017 1:44pm 02/04/2017 1: 55pm Red Blood Count 3.74 M/MM3 L 4.00-5.20 02/04/2017 1:44pm 02/04/2017 1: 55pm Hemoglobin 12.0 GM/DL 12-16 02/04/2017 1:44pm 02/04/2017 1:55pm Hematocrit 35.8 % L 36-46 02/04/2017 1:44pm 02/04/2017 1:55pm Mean Corpuscular Volume 95.7 UM3 80-100 02/04/2017 1:44pm 02/04/2017 1: 55pm Mean Corpuscular Hemoglobin 32.1 UUG 26-34 02/04/2017 1:44pm 2016 1:55pm Mean Corpuscular Hemoglobin Concent 33.5 GM/DL 31-37 02/04/2017 1:44pm 02/04/2017 1:55pm RDW Standard Deviation 42.6 FL 36.9-50.2 02/04/2017 1:44pm 02/04/2017 1 :55pm Platelet Count 245 T/MM3 130-400 02/04/2017 1:44pm 02/04/2017 1:55pm Mean Platelet Volume 9.1 UM3 L 9.4-12.4 02/04/2017 1:44pm 02/04/2017 1: 55pm Neutrophils (%) (Auto) 71.1 % H 33-66 02/04/2017 1:44pm 02/04/2017 1: 55pm Lymphocytes (%) (Auto) 15.6 % L 23-45 02/04/2017 1:44pm 02/04/2017 1: 55pm Monocytes (%) (Auto) 9.0 % 0-9.0 02/04/2017 1:44pm 02/04/2017 1:55pm Eosinophils (%) (Auto) 3.6 % 0-4 02/04/2017 1:44pm 02/04/2017 1:55pm Basophils (%) (Auto) 0.4 % 0-2 02/04/2017 1:44pm 02/04/2017 1:55pm Immature Granulocyte % (Auto) 0.3 % 0.0-0.5 02/04/2017 1:44pm 2016 1:55pm Absolute Neutrophils (auto) 5.0 T/MM3 1.8-7.7 02/04/2017 1:44pm 2016 1:55pm Absolute Lymphocytes (auto) 1.1 T/MM3 1-4.8 02/04/2017 1:44pm 2016 1:55pm Absolute Monocytes (auto) 0.6 T/MM3 0-0.8 02/04/2017 1:44pm 02/04/2017 1:55pm Absolute Eosinophils (auto) 0.3 T/MM3 0-0.5 02/04/2017 1:44pm 2016 1:55pm Absolute Basophils (auto) 0.0 T/MM3 0-0.2 02/04/2017 1:44pm 02/04/2017 1:55pm Absolute Immature Granulocyte (auto 0.02 T/MM3 0.00-0.03 02/04/2017 1: 44pm 02/04/2017 1:55pm Platelet Function P2Y12 React Units 127 PRU 02/04/2017 2:16pm 2016 2:34pm PRU reference range for non-treated is 194-418. Post Drug Results: Lower PRU levels are associated with antiplatelet effect. PRU results <194 are highly indicative of a P2Y12 inhibitor effect. PRU results of >237 are recommended pre-surgical results. NOTE: Test is not reliable with NSAID use, platelet count <100,000, Hematocrit <33% or >52%, or inherited platelet disorders. Icterus Index < 2 0-7 02/04/2017 1:44pm 02/04/2017 2:01pm Chemistry Specimen Hemolysis < 15 0-25 02/04/2017 1:44pm 02/04/2017 2 :01pm 0-25: Specimen Exhibited No Hemolysis. Turbidity < 20 0-20 02/04/2017 1:44pm 02/04/2017 2:01pm Sodium Level 134 MEQ/L 134-144 02/04/2017 1:44pm 02/04/2017 2:01pm Potassium Level 5.1 MEQ/L H 3.6-5 02/04/2017 1:44pm 02/04/2017 2:01pm Chloride Level 95 MEQ/L L 98-107 02/04/2017 1:44pm 02/04/2017 2:01pm Carbon Dioxide Level 30 MEQ/L 22-30 02/04/2017 1:44pm 02/04/2017 2: 01pm Anion Gap 9 MEQ/L 5-15 02/04/2017 1:44pm 02/04/2017 2:01pm Blood Urea Nitrogen 36.0 MG/DL H 7-17 02/04/2017 1:44pm 02/04/2017 2: 01pm Creatinine 1.3 MG/DL H 0.7-1.2 02/04/2017 1:44pm 02/04/2017 2:01pm BUN/Creatinine Ratio 28 RATIO H 6-26 02/04/2017 1:44pm 02/04/2017 2: 01pm Glomerular Filtration Rate Calc 39 02/04/2017 1:44pm 02/04/2017 2: 01pm Glucose Level 134 MG/DL H 65-110 02/04/2017 1:44pm 02/04/2017 2:01pm Calculated Osmolality 268 MOSM/KG 261-280 02/04/2017 1:44pm 02/04/2017 2:01pm Calcium Level 8.4 MG/DL 8.4-10.2 02/04/2017 1:44pm 02/04/2017 2:01pm Total Bilirubin 0.90 MG/DL 0.20-1.30 02/04/2017 1:44pm 02/04/2017 2: 01pm Alkaline Phosphatase 181 U/L H 38-126 02/04/2017 1:44pm 02/04/2017 2: 01pm Total Protein 6.3 G/DL 6.3-8.2 02/04/2017 1:44pm 02/04/2017 2:01pm Albumin 3.6 G/DL 3.5-5.0 02/04/2017 1:44pm 02/04/2017 2:01pm Globulin 2.7 G/DL 2.4-3.6 02/04/2017 1:44pm 02/04/2017 2:01pm Albumin/Globulin Ratio 1.3 RATIO 1.1-2.2 02/04/2017 1:44pm 02/04/2017 2 :01pm Aspartate Amino Transf (AST/SGOT) 953 U/L H 14-36 02/04/2017 1:44pm 12/2016 2:07pm Alanine Aminotransferase (ALT/SGPT) 489 U/L H 9-52 02/04/2017 1:44pm 12/2016 2:01pm Troponin I < 0.012 ng/ml 0-0.12 02/04/2017 1:44pm 02/04/2017 2:12pm Troponin values with a difference of 55% increase from orginal troponin value represent a true biological DELTA value. (%increase Calc=Orginal Troponin value, divided by subsequent Troponin value, multiplied by 100) Lipase 211 U/L 23-300 02/04/2017 1:44pm 02/04/2017 2:01pm Name: COREY HOLLAND Unit #: [id number] : 1935 Sex: F Admit Date: Loc / Svc: ED Discharge Date: DIAGNOSTIC IMAGING REPORT Report #: [id number] [facility] KLAUS Ewing Indication: ITS.REASON: INJURY, PAIN PROCEDURE: ELBOW LEFT 2 VIEW: Encounter: Initial Comparison: None Findings: There is no acute fracture, dislocation or malalignment identified. Impression: No acute osseous abnormality. . Procedures Procedure Status Date Provider(s) Routine venipuncture Completed 11/29/16 Assay of serum potassium Completed 11/29/16 Routine venipuncture Completed 12/01/16 Assay of serum potassium Completed 12/01/16 Routine venipuncture Completed 12/29/16 Metabolic panel total ca Completed 12/29/16 Complete cbc w/auto diff wbc Completed 12/29/16 [id number]"RINGERS LACTATE INFUSION, UP TO 1000 CC" Completed 12/29/16 Routine venipuncture Completed 01/18/17 Assay of serum potassium Completed 01/18/17 Routine venipuncture Completed 01/20/17 Metabolic panel total ca Completed 01/20/17 Encounters Encounter Location Arrival/Admit Date Discharge/Depart Date Attending Provider Departed Emergency Room [facility] 02/04/17 1:13pm 02/04/17 3: 48pm ARIAN CARRANZA MD Registered [facility] 01/20/17 1:39pm MEY OLIVER MD Registered [facility] 01/18/17 11:15am MEY OLIVER MD Departed Surgical Day Care [facility] 12/29/16 7:28am 12/29/16 9: 20am TIFFANIE BOWIE MD Registered [facility] 12/01/16 10:02am MEY OLIVER MD Registered [facility] 11/29/16 12:06pm MEY OLIVER MD Recent Diagnosis
[2017-02-09 06:15] VITALS: BP 129/60; PULSE 57; RESP 14; TEMP 98.8; O2SAT 98; Ht 152.4 cm; Wt 60.7 kg
[2017-02-09 06:49] LABS: BASOPHILS # (AUTO) 0.1 T/MM3 (0-0.2); BASOPHILS % (AUTO) 0.9 % (0-2); EOSINOPHILS # (AUTO) 0.5 T/MM3 (0-0.5); EOSINOPHILS % (AUTO) 5.8 % (0-4); HCT - HEMATOCRIT 36.1 % (36-46); HGB - HEMOGLOBIN 11.9 GM/DL (12-16); IMMATURE GRANULOCYTE # (AUTO) 0.06 T/MM3 (0.00-0.03); IMMATURE GRANULOCYTE % (AUTO) 0.8 % (0.0-0.5); LYMPHOCYTES # (AUTO) 2.4 T/MM3 (1-4.8); LYMPHOCYTES % (AUTO) 29.8 % (23-45); MEAN CORPUSCULAR HGB 32.3 UUG (26-34); MEAN CORPUSCULAR VOLUME 98.1 UM3 (80-100); MONOCYTES # (AUTO) 0.9 T/MM3 (0-0.8); MONOCYTES % (AUTO) 11.9 % (0-9.0); NEUTROPHILS % (AUTO) 50.8 % (33-66); RED BLOOD COUNT 3.68 M/MM3 (4.00-5.20); WBC - WHITE BLOOD COUNT 7.9 T/MM3 (4.5-11.0)
[2017-02-09] MEDS ORDERED: LR 1,000 ML IV SCH (07:00)
--- NOTE | 2017-02-09 07:32 | ANESPREOP ---
Anesthesia Record Date and Time DATE: 02/09/17 TIME: 07:29 Pre-Op Diagnosis spastic entropion ou Proposed Surgical Procedure ENTROPIAN REPAI OU Allergies: Coded Allergies: Penicillins (Verified Allergy, Intermediate, HIVES/RASH, 02/09/17) codeine (Verified Allergy, Intermediate, "WOOZY", 02/09/17) morphine (Verified Allergy, Intermediate, VOMITING, 02/09/17) grass pollen (Verified Allergy, Unknown, 02/09/17) PER H&P ciprofloxacin (Verified Adverse Reaction, Intermediate, NAUSEA, 02/09/17) Ht/Wt/BMI Height: 5 ' 0.00 " Weight: 60.700 kg BMI: 26.1 kg/m2 Vital Signs Date Time Temp Pulse Resp B/P Pulse Ox O2 Delivery O2 Flow Rate FiO2 02/09/17 06:15 98.8 57 14 129/60 98 Room Air Medications Inpatient Medications Current Medications Medications (Trade) Dose Ordered Sig/Lynette Start Time Stop Time Status Last Admin Dose Admin Lactated Ringer's (Lactated Ringers) 1,000 ml @ 30 mls/hr Q24H 02/09/17 07:00 Aspirin *EC* (Aspirin EC) 81 Mg Tablet.dr, 81 MG PO DAILY, (Reported) Last Taken: on 02/08/17 0930 Atorvastatin Calcium (Atorvastatin Calcium) 20 Mg Tablet, 20 MG PO HS, (Reported) Last Taken: on Unknown Date & Time Biotin (Biotin) 5,000 Mcg Tab.rapdis, 5, 000 MCG PO DAILY, (Reported) Last Taken: on 02/08/17 09 Cephalexin (Keflex) 500 Mg Capsule, 1 CAP PO BID , (Reported) Last Taken: on 02/08/17 1900 Cholecalciferol (Vitamin D3) Unknown Strength Tablet, Unknown Dose PO DAILY, (Reported) Last Taken: on 02/08/17 0930 Clopidogrel Bisulfate (Clopidogrel) 75 Mg Tablet , 75 MG PO DAILY, (Reported) Last Taken: on 02/08/17 0930 Fluoxetine HCl (Prozac) 20 Mg Capsule, 20 MG PO DAILY, (Reported) Last Taken: on 02/08/17 1000 Lactobacillus Combination No.4 (Probiotic) 1 Each Capsule, 1 CAP PO DAILY, (Reported) Last Taken: on Unknown Date & Time Melatonin (Melatonin) 3 Mg Tablet, 3 MG PO HS PRN for INSOMNIA, (Reported) Last Taken: on 02/08/172329 Metoprolol Tartrate (Metoprolol Tartrate) 25 Mg Tablet, 12.5 MG PO BID, (Reported) Last Taken: on 02/09/17 06 Multivitamin (Multi-Day Vitamins) 1 Each Tablet , 1 TAB PO DAILY, (Reported) Last Taken: on Unknown Date & Time Nitroglycerin (Nitrostat) 0.4 Mg Tablet , 0.4 MG PO Q5MIN PRN for CHEST PAIN, (Reported) Last Taken: on Unknown Date & Time Omeprazole (Omeprazole) 40 Mg Capsule.dr , 40 MG PO ACB, (Reported) Last Taken: on 02/09/17 06 Oxybutynin Chloride (Oxybutynin Chloride) 5 Mg Tablet, 10 MG PO BID, (Reported) Last Taken: on 02/08/172329 Prednisone (Prednisone) 1 Mg Tablet, 4 MG PO DAILY, (Reported) Last Taken: on Unknown Date & Time Primidone (Primidone) 50 Mg Tablet, 100 MG PO HS, (Reported) Last Taken: on 02/08/17 0930 Sulfamethoxazole/Trimethoprim (Sulfamethoxazole- Tmp Ss Tablet) 1 Each Tablet, 1 TAB PO HS, (Reported) Last Taken: on 02/08/172329 Tramadol HCl (Ultram) 50 Mg Tablet, 50 MG PO Q4HR PRN for PAIN Take 1/2 - 1 tablet, by mouth, every 4 hours as needed for pain. Last Taken: on Unknown Date & Time Currently on Beta Fidelia: Yes Medical/Surgical History Anesthesia PMH: Reports: *Angina (UPPPER GI, BACK & SHOULDER-POSS FIBROMYALGIA) , *Diabetes, *Hypertension (ON MEDS), Arthritis (RIGHT HIP,KNEE,LEG,BACK,OA PER H&P), Obesity, Reflux, Denies: *TN, Anesthesia Reactions (NO AIRWAY ISSUES), CHF , Cancer, Deep Vein Thrombosis, Glaucoma, Hiatal Hernia, Malignant Hyperthermia , Renal Disease, Sleep Apnea, Thyroid Disease Smoking Status: Never smoker Has pt. smoked today?: No Use Chewing Tobacco?: No Second Hand Exposure: No Substance Use Type: does not use Alcohol Intake: none HX of Last Menstrual Period: HYST Past Surgical History Orthopedic Surgeries: Yes - BILAT HIPS,LEFT KNEE,RCTR Abdominal Surgeries: Yes - APPY,ROBBIE Genitourinary Surgeries: Yes - BLADDER SURGERY X2 Cardiac Surgeries: Yes - HEART CATH X2 Endocrine Surgeries: Reproductive Surgeries: Yes - HYSTERECTOMY,VAGINAL HERNIA REPAIR PER H&P Neurological Surgeries: Ear Surgeries: Nose Surgeries: Throat Surgeries: Yes - TONSILLECTOMY Other Surgeries: Yes - CATARACT REMOVAL,VISION SURGERY,PROLAPSE 2002 PER H&P Anesthesia Adverse Reactions: FOUND none Hx of Motion Sickness: No Pertinent Findings Laboratory Tests 02/09/17 06:37 EKG Rhythm: Sinus Rhythm Physical Exam Respiratory: Bilat breath sounds equal, Lungs clear Cardiovascular: FOUND Regular rate, rhythm, FOUND No murmur Airway Assessment Mallampati Score: II TMD: 3 Fingerbreadths Neck Extension: Good Teeth: Upper Dentures, Partial Lower Dentures Overall Assessment: No Airway Concerns ASA: 3 Plan Anesthesia Plan: MAC Discussion Discussed risks/options/alternatives of anesthesia and questions answered. Patient consents. Nursing pain assessment noted. Attestation Statement Prior to the delivery of any anesthetic medication, I examined the patient, developed the plan, obtained the patient's consent and discussed the risk and benefits of the procedure with the patient/guardian. BILL JOYA DATA GOVERNANCE ANALYST Feb 09, 2017 07:32
[2017-02-09] MEDS ORDERED: FENTANYL 100mcg/2ml INJECTION ONE (07:35)
[2017-02-09] MEDS ORDERED: MIDAZOLAM 2mg/2ml INJECTION ONE (07:35)
[2017-02-09 09:15] VITALS: BP 116/56; PULSE 65; RESP 20; TEMP 98.7; O2SAT 93
[2017-02-09 09:30] VITALS: BP 108/52; PULSE 62; RESP 16; O2SAT 95
--- NOTE | 2017-02-09 09:33 | ANESPO ---
Post-Op Note Date 02/09/17 Time: 09:32 Status Pt Participated in Evaluation: Pt participated in person Vital Signs Date Time Temp Pulse Resp B/P Pulse Ox O2 Delivery O2 Flow Rate FiO2 02/09/17 09:15 98.7 65 20 116/56 93 Room Air Respiratory Function: Airway patent, Regular respirations Cardiovascular Function: Regular pulse Mental Status: Alert/oriented Pain Level Intensity: 0 Hydration: Taking po fluids, IV infusing Complications during Recovery None apparent Post-Anesthesia Notes pt. evin. well Follow-Up Instructions Instructions Per Surgeon Additional Information none BILL JOYA CRNA Feb 09, 2017 09:33
[2017-02-09 09:45] VITALS: BP 107/53; PULSE 63; RESP 17; O2SAT 97
[2017-02-09 10:00] VITALS: BP 112/55; PULSE 63; RESP 16; TEMP 97.8; O2SAT 95
--- NOTE | 2017-02-13 13:05 | OPNOTEF ---
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 PROCEDURE PERFORMED Bilateral Quickert sutures and lateral tarsal strip. SURGEON Adolfo Henderson MD ENROLLMENT PROCESSOR Ludivina Kaufman DESCRIPTION OF PROCEDURE The patient was taken to the operating room and given a local anesthetic, approximately 4 cc in each eye. The local anesthetic consisted of 4 cc of 0.75% bupivacaine, 4 cc of 2% lidocaine with 1:200,000 parts of epinephrine and 1 cc of hyaluronidase. The patient was then prepped and draped in a sterile fashion. The right eye was approached initially and three Quickert sutures were introduced in the lower fornix on the conjunctival side to be passed out through the skin near the lash line. These were doubled-armed and were 5-0 chromics. They were tied to cause slight eversion of the lid. Next, the right lateral canthus was clamped with a Marbella clamp and then this was cut with suture scissors to complete the lateral tarsorrhaphy. The incision was then extended over the lateral orbital rim with Bovie cautery on a cut-cautery technique. The lateral rim was isolated further using blunt dissection with Q-tips. A lower lid lateral tarsal strip was formed using forceps and Vannas scissors to create an anterior and posterior flap for approximately 5 mm. The posterior flap was then released from the lateral orbital rim by cutting its attachments with blunt Brett scissors. This lateral strip was then further released from the lower lid retractors by cutting through them underneath the lateral strip to completely free the lateral tarsal strip. The skin on the strip - the upper skin was then removed with Brett scissors and the conjunctiva was cauterized. A double-armed 4-0 Prolene suture on a tapered needle was then introduced through the lateral tarsal strip from anterior to posterior, both superiorly and inferiorly. The two needles were then introduced through the lateral orbital rim from posterior to anterior and tied to pull the strip tight. The suture tails were then buried into the tissue with another pass of each needle. The angle of the eye was re-formed with a 5-0 Vicryl and two more Vicryls were used to close the subcutaneous tissue over the wound. The skin was then closed with four to five 6-0 plain gut sutures in a simple fashion. The left eye was addressed in a similar fashion. The patient tolerated the procedure and was returned to the holding area to have ice packs placed on the wound. VARINDER
== END 2017-02-09 10:10 | disposition home or self-care (01) ==
LOC: NSC 06:03
PROVIDERS: ATTEND Ophthalmology
DX: H02.042 Spastic entropion of right lower eyelid (principal); H02.045 Spastic entropion of left lower eyelid; I10 Essential (primary) hypertension; E11.9 Type 2 diabetes mellitus without complications; F41.9 Anxiety disorder, unspecified; F32.9 Major depressive disorder, single episode, unspecified; Z79.84 Long term (current) use of oral hypoglycemic drugs; Z79.82 Long term (current) use of aspirin; Z79.899 Other long term (current) drug therapy; Z88.0 Allergy status to penicillin; Z88.5 Allergy status to narcotic agent; Z87.891 Personal history of nicotine dependence; Z90.49 Acquired absence of other specified parts of digestive tract; Z90.710 Acquired absence of both cervix and uterus
CPT/HCPCS: 36415; 67924; 85025; 85576; J2250; J3010; J7120

== ENCOUNTER 2017-06-18 16:17 | Inpatient (IN) ==
[2017-06-18 17:29] VITALS: BMI 27.0
[2017-06-18] MEDS ORDERED: D5-1/2NS with KCL 20mEq 1,000 ML IV SCH (18:00)
[2017-06-18] MEDS ORDERED: ACETAMINOPHEN 650 MG SUPPOSITORY PR PRN (18:07)
[2017-06-18] MEDS: ONDANSETRON 4 MG/2 ML INJECTION IVP PRN (18:49)
[2017-06-18] MEDS: MEPERIDINE 100 MG/ML INJECTION IVP PRN ×2 (18:52→21:54)
--- NOTE | 2017-06-18 19:00 | General Surgery Consult Note ---
Consult date: 06/19/17 Attending Physician: Phil Chao MD Reason for consult: endoscopy (epigastric) PFSH Patient Stated Medical History Migraine Yes Cataracts Yes Hearing Loss Yes Macular Degeneration Yes Hypertension Yes Diabetes Mellitus Type 2 Yes Hx Incontinence Yes Hx Renal Disease No Hx Urinary Tract Infection Yes Depression Yes Post Menopausal Yes Surgical History: Heart Cath with stents mid and proximal LAD 01-02-17 Dr. Clifton Garcia,. EGD antritis 11-11-15 DR. Welch,. EGD treated for H.Pylori 08-25-14 Dr. Kassie Wilson,. Colonoscopy snare polypectomy diverticulosis 12-09-13 Dr. Kassie Wilson, . tonsillectomy,. hysterectomy,. gall bladder surgery,. bladder repair,. hip surgery X 2,. knee surgery,. cataract surgery, Family History: Family History Unknown Diabetes Heart disease Stomach problems Hypertension - Social History Smoking status: Former smoker Household members: none () Medications Home Medications Medication Instructions Recorded Confirmed Type Aspirin [Aspirin EC] 81 mg PO DAILY #0 02/04/17 06/18/17 History Clopidogrel Bisulfate [Clopidogrel] 75 mg PO DAILY #0 02/04/17 06/18/17 History Nitroglycerin [Nitrostat] 0.4 mg PO Q5MIN PRN #0 02/04/17 06/18/17 History alprazolam 0.25 mg tablet 0.25 mg PO BID PRN 04/03/17 06/18/17 History biotin 5,000 mcg disintegrating 5,000 mcg PO DAILY tab 04/03/17 06/18/17 History tablet sennosides-docusate sodium 8.6 1 tab PO BID PRN 04/03/17 06/18/17 History mg-50 mg tablet mirabegron ER 25 mg 25 mg PO DAILY 06/13/17 06/18/17 History tablet,extended release 24 hr multivitamin tablet 1 tab PO DAILY #30 tab 06/15/17 06/18/17 History FLUoxetine [Prozac] 20 mg PO DAILY 06/18/17 06/18/17 History Gabapentin [Neurontin] 400 mg PO HS PRN MDD 5 06/18/17 06/18/17 History Linaclotide [Linzess] 145 mcg PO 3XW PRN 06/18/17 06/18/17 History Potassium Chloride 20 meq PO DAILY 06/18/17 06/18/17 History Vitamin D3 06/18/17 History Allergies Allergy/AdvReac Type Severity Reaction Status Date / Time codeine Allergy Verified 06/18/17 17:15 grass pollen Allergy Verified 06/18/17 18:09 morphine Allergy Verified 06/18/17 17:15 nitrofurantoin Allergy Verified 06/18/17 18:09 Penicillins Allergy Verified 06/18/17 17:15 Review of Systems 10-point ROS: negative except for HPI and the following: - Eyes/Ears/Nose/Throat Eyes: Present: other (wears glasses) - Cardiovascular Cardiovascular: Present: chest pain (angina) (2-2016 then Heart Cath and 2 stents) - Gastrointestinal Gastrointestinal: Present: other (see HPI) - Musculoskeletal Musculoskeletal: Present: joint pain (uses a cane) - Neurological Neurological: Present: muscle weakness - Psychiatric Psychiatric: Present: depression - Endocrine Endocrine: Present: diabetes - Hematologic/Lymphatic Hematologic/Lymphatic: Present: easy bruising, use of blood thinners (Plavix) - Vital Signs Last Vital Signs Temp 98.3 F 06/18/17 17:35 Pulse 60 06/18/17 17:35 Resp 16 06/18/17 17:35 BP 139/66 06/18/17 17:35 Pulse Ox 98 06/18/17 17:35 - Laboratory Result Diagrams: 06/18/17 18:54 06/18/17 18:54 Hospital Course Summary Disclaimer: The visit summary below is not to be considered part of the above Progress Note.
[2017-06-18] MEDS ORDERED: IOHEXOL 350mg/ml 50ml INJECTION ONE (19:29)
[2017-06-18] MEDS ORDERED: SALINE FLUSH 10ml SYRINGE ONE (19:29)
[2017-06-18] MEDS ORDERED: NS 100 ML ONE (19:29)
[2017-06-18] MEDS ORDERED: IOHEXOL 350mg/ml 75ml INJECTION ONE (19:29)
[2017-06-18] MEDS ORDERED: IODIXANOL 320mg/ml 50ml INJECTION IV ONE (19:35)
[2017-06-18] MEDS ORDERED: IODIXANOL 320mg/ml 100ml INJECTION IV ONE (19:35)
[2017-06-18] MEDS: PANTOPRAZOLE 40 MG INJECTION IVP SCH (21:54)
[2017-06-18] MEDS ORDERED: KETOROLAC 15 MG/ML INJECTION IVP ONE (22:43)
[2017-06-19] MEDS: D5-1/2NS with KCL 20mEq 1,000 ML IV SCH ×3 (02:45→19:45)
[2017-06-19] MEDS: MEPERIDINE 100 MG/ML INJECTION IVP PRN ×4 (06:25→21:22)
[2017-06-19] MEDS: SALINE FLUSH 10ml SYRINGE IV PRN ×5 (06:26→23:58)
--- NOTE | 2017-06-19 08:30 | History and Physical ---
HISTORY OF PRESENT ILLNESS The patient is an 81-year-old female here today with granddaughter, Abigail. She is here today with a several-day history of unrelenting epigastric pain that penetrates to her back, especially when she coughs or takes a deep breath. She has also been nauseated--constant nausea, no vomiting. She also has significant fatigue and also diffuse muscle and joint pain. She has a history of chronic epigastric pain in the past but this is somewhat worse than that. She feels lightheaded, dizzy. She had about 10-15 episodes of diarrhea yesterday, but hasn't had too many today yet. PAST MEDICAL HISTORY 1. History of coronary artery disease, patient status post stent placement to LAD, both proximal and mid, two stents placed by Dr. Tra Henderson on 2016. 2. Epigastric pain. 3. Gastritis. 4. Frequent urinary tract infections. 5. Frequency of urination. 6. Mixed incontinence. 7. Incomplete bladder emptying. 8. Atrophic vaginitis. 9. Enterocele. 10. History of kidney stones. 11. Fibromyalgia. PAST SURGICAL HISTORY 1. Appendectomy. 2. Hysterectomy. 3. Cholecystectomy. 4. Carpal tunnel to the right. 5. Bilateral hip replacement. 6. Vaginal wall repair. 7. Vaginal prolapse. 8. Vision surgery with laser. 9. Cataract removal bilaterally. 10. Left knee replacement. REVIEW OF SYSTEMS As above. The patient denies any hemoptysis. No hematochezia. No melena. Denies any TIA or CVA symptoms. Denies any symptoms suggestive of urinary tract infection. No fever. No chills. ALLERGIES Listed as codeine allergy, grass pollen allergy, morphine, nitrofurantoin, penicillin. CURRENT MEDICATION 1. Alprazolam 0.25 mg one tablet p.o. b.i.d. p.r.n. 2. Aspirin 81 mg tablet p.o. b.i.d. 3. Biotin 5,000 mcg one tablet daily. 4. Plavix 75 mg one tablet daily. 5. Fluoxetine 20 mg one tablet daily. 6. Gabapentin 400 mg one tablet at bedtime. 7. Lasix 40 mg one tablet twice a day. 8. Linaclotide 145 mcg three weekly. 9. Metoprolol 12.5 mg one tablet p.o. b.i.d. 10. Myrbetriq 25 mg one tablet daily. 11. Multivitamin one tablet daily. 12. Nitroglycerin 0.4 mg one tablet daily. 13. Potassium chloride. 14. Primidone 50 mg two tablets at bedtime. 15. Senna S one tablet daily. 16. Vitamin D3 one tablet daily. PHYSICAL EXAMINATION GENERAL: She looks uncomfortable due to pain. She looks unwell. HEENT: Unremarkable. NECK: Supple. CHEST: Lungs were clear to auscultation bilaterally. CARDIOVASCULAR: Regular rate and rhythm. ABDOMEN: Soft. Patient is quite tender in the epigastric region and in the midabdominal wall. Bowel sounds normoactive. No acute surgical abdomen, i.e. no rebound, no guarding. EXTREMITIES: No cyanosis, clubbing or edema. NEURO EXAM: Grossly intact. SKIN: No rash. ASSESSMENT 1. Unrelenting epigastric pain. 2. Intractable nausea. 3. Generalized fatigue. 4. Dizziness. 5. Acute diarrhea. 6. Diffuse arthralgia and myalgia. 7. Chronic medical problems including coronary artery disease and overactive bladder. PLAN Admit the patient to [facility] for further evaluation and recommendations. Will go ahead with a CT chest and CT abdomen and pelvis because of the fact that patient is having pain that penetrates through to her back. Will also do an EKG to be sure that patient does not have NC in light of the fact that she is diabetic. Check lab including CMP, CBC, UA, magnesium, and troponin I. Will make patient n.p.o. for now. Activity is as tolerated with nursing staff assistance. Will see how she responds to current treatment. She will also be started on D5 0.5 normal with adjustments made Consultation to Emmanuelle. Patient will probably need an EGD to rule out a penetrating ulcer. MTDD
--- NOTE | 2017-06-19 08:51 | Consultation ---
DATE OF CONSULTATION 06/18/2017 FINDINGS Mrs. Lama is an 81-year-old female whom I was asked to see as a new patient/ consultation as a result of her history for abdominal pain. Patient states that she has had abdominal pain on and off now for the last couple of years. Patient states that she has underwent upper endoscopy in the past that did not reveal any evidence for ulcers. Upon questioning the patient, she states that she has had her "gallbladder removed in the past". Patient denies any ulcerogenic medications such as aspirin, ibuprofen. She denies any history for alcohol intake. The patient states that over the weekend her abdominal pain became significantly worse. Son states that she was "not herself and did not want to go anywhere or eat this weekend". Patient states that she had a severe pain within the epigastric region that radiated "straight into her back". The patient did have a component of some nausea in association with the pain but did not experience any emesis. The patient states she did have some loose stools yesterday although this is not abnormal for her. The patient states that she had contemplated about coming to the emergency room over the course of the weekend as a result of the severity of this pain. Patient's son did inform me that she has been diagnosed with pancreatitis in the past. He states that there was one time that her "liver enzymes were elevated". PAST MEDICAL HISTORY Performed by my nurse practitioner, Timmy Dye. PAST SURGICAL HISTORY Performed by my nurse practitioner, Timmy Dye. MEDICATIONS Performed by my nurse practitionerTimmy. ALLERGIES Performed by my nurse practitionerTimmy. SOCIAL HISTORY Performed by my nurse practitionerTimmy. FAMILY HISTORY Performed by my nurse practitionerTimmy. REVIEW OF SYSTEMS Performed by my nurse practitionerTimmy. PHYSICAL EXAMINATION GENERAL: Mrs. Lama is an 81-year-old female who did not appear to be in acute distress. VITALS: Temperature 98.3. Pulse 60. Respirations 16. Blood pressure 139/66. SaO2 98% on room air. HEENT: Normocephalic. Pupils are equally round and react to light and accommodation. NECK: Supple without lymphadenopathy. CHEST: Clear to auscultation bilaterally. HEART: Regular rate and rhythm. Normal S1, S2, without gallops, murmurs or clicks. ABDOMEN: Palpation of the abdomen did reveal a slight component of tenderness throughout her entire abdomen. The patient however did appear to have more point tenderness located within the epigastric region as well as just to the right of midline within the right subcostal region. She did have a component of some voluntary guarding. I did not appreciate any evidence for involuntary guarding or rebound tenderness. I did not appreciate any evidence for hepatomegaly or other abnormal masses. EXTREMITIES: Without clubbing, cyanosis, or edema. NEURO: Cranial nerves II-XII grossly intact. Patient without focal, motor, or sensory deficits. LABORATORY/RADIOGRAPHIC EVALUATION The patient had a CBC and her white count was 7.7. Hemoglobin is 12.2. CMP and amylase and lipase levels have been obtained and are pending at the time of dictation. UA was obtained and found to be essentially within normal limits. ASSESSMENT 81-year-old female with history of severe epigastric abdominal pain of uncertain etiology. PLAN Will await the pending lab. If her CMP, amylase and lipase levels are found to be essentially within normal limits one at that time can make an argument for proceeding with esophagogastroduodenoscopy to rule in or rule out peptic ulcer disease as the underlying etiology for her abdominal pain. For now, we will await her upcoming lab results and proceed accordingly. Will go ahead and give the patient some clear liquids this evening. Will make n.p.o. after midnight. Tomorrow will reevaluate the patient and as stated above, if the lab is within normal limits, will proceed with esophagogastroduodenoscopy. The above plan/ algorithm was discussed with the patient and her son who is present this evening. They understood and agreed. VARINDER
--- NOTE | 2017-06-19 08:58 | CT Scan Report ---
Indication: epigastric pain into the back PROCEDURE: CT angio aorta: Encounter: Initial Comparison: None Technique: Axial CT angiographic imaging of the chest, abdomen and pelvis was performed before and after the administration of intravenous contrast. Coronal and sagittal MIP reconstructed images were created and reviewed. Three-dimensional surface shaded volume rendered imaging of the aorta and arterial vasculature was created by the technologist on a dedicated workstation under the direction of the interpreting radiologist and reviewed. Automated Exposure Control and Iterative Reconstruction dose reducing techniques were utilized. Contrast: 120 mL Omnipaque 350 Findings: CT angiogram of the chest with and without: Noncontrast images show no evidence of intramural hematoma. Three vessel coronary artery disease and possible coronary artery stents. Postcontrast images show mild atherosclerotic plaque slightly narrowing the left subclavian artery origin. No evidence of aortic aneurysm or dissection. The central pulmonary arteries are widely patent. Lung hoang show no pneumothorax. No consolidative pneumonia or pleural effusion. Mild emphysema. No axillary or mediastinal lymphadenopathy by CT size criteria. Heart size is normal. No pericardial effusion. CT angiogram of the abdomen and pelvis: No evidence of aortic aneurysm or dissection. The celiac, SMA and ASH origins are patent. Mild stenosis at both renal artery origins. Wall thickening and subtle inflammatory change in the region of the duodenal bulb and pylorus is partially obscured by metallic artifact. Liver enhances normally. Gallbladder is surgically absent. The kidneys show tiny low-attenuation foci, too small to definitively characterize. The spleen, pancreas and adrenal glands are within normal limits. No adenopathy. Metallic artifact from bilateral hip replacements and sigmoid diverticulosis. There is ectasia of the right common iliac artery at 1.7 cm in diameter. Bone windows show degenerative change and scoliosis in the spine. Impression: CT angiogram of the chest with and without contrast: No evidence of acute aortic syndrome or acute disease process. CT angiogram of the abdomen and pelvis: Possible inflammatory change in the area of the duodenal bulb and pylorus could represent gastritis or developing ulcer. Upper endoscopy may be helpful for further evaluation. No evidence of acute aortic syndrome. There is a preliminary report by [facility]. .
[2017-06-19] MEDS: PANTOPRAZOLE 40 MG INJECTION IVP SCH ×2 (10:06→21:22)
[2017-06-19] MEDS: SUCRALFATE 1 GM TABLET PO SCH ×3 (13:53→21:22)
--- NOTE | 2017-06-19 19:50 | Progress Note ---
DATE 06/19/2017 FINDINGS Mrs. Lama this evening stated she was still having a component of abdominal discomfort. She was in the process of going to the bathroom upon entering her room. EXAM VITAL SIGNS: Temperature 97.8, pulse 60, respirations 17, blood pressure 108/44 , SAO2 90% on room air. HEENT: Normocephalic. Pupils are equally round and react to light and accommodation. CHEST: Clear to auscultation bilaterally. HEART: Regular rate and rhythm. Normal S1 and S2 without gallops, murmurs or clicks. ABDOMEN: Palpation of the abdomen reveals some generalized abdominal discomfort. The patient still displays more tenderness within her epigastric region. LABORATORY/RADIOGRAPHIC EVALUATION Earlier this morning I did review the patient's chart and discovered that she had been on Plavix as a result of her history of having a coronary stent placed earlier this year. I did order a P2Y12 platelet inhibition test. 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 Patient had a CMP obtained which was found to be essentially within normal limits. Specifically, her AST, ALT and alkaline phosphatase were within normal limits. Lipase was only minimally elevated at 317. Creatinine and BUN were elevated at 1.4 and 39. The patient did undergo a CT angio earlier today. There was no evidence for aneurysmal dilatation or dissecting aneurysm. The patient was found to have some inflammatory changes surrounding the duodenum suspicious for possible duodenal ulcer. Given this history for possible ulcer disease I did order a serum H. pylori IgG. Lab is pending. ASSESSMENT 81-year-old female with several-year history of abdominal pain which has recently become progressively worse. Patient with other multiple associated medical comorbidities. PLAN I had thought initially about proceeding with EGD today. After reviewing the patient's chart more carefully, as stated above, I did discover that this patient is on Plavix. She did have a coronary stent placed earlier this year and therefore I would not recommend discontinuing her Plavix at this point in time. As stated above, it does appear that her platelets are inhibited and there is increased risk of bleeding associated with endoscopy. It was my recommendation that we go ahead and treat the patient empirically as if she has peptic ulcer disease. She currently is on a PPI on a b.i.d. basis. I did add Carafate 1 g p.o. q.i.d. to her medical regimen. I also obtained a serum H. Pylori, as stated above. Will continue with current care at this point in time. Hopefully, the patient's pathology will improve with the above initiation of medical therapy. I would not recommend endoscopy this time given her anticoagulation/history for placing a coronary stent. VARINDER
[2017-06-20] MEDS: D5-1/2NS with KCL 20mEq 1,000 ML IV SCH ×3 (04:05→20:26)
[2017-06-20] MEDS: SUCRALFATE 1 GM TABLET PO SCH ×4 (06:05→21:18)
--- NOTE | 2017-06-20 08:31 | General Surgery Progress Note ---
Subjective Patient reports: still having pain (mostly upper abd/epigastric), nausea (no emesis) - Vital Signs Last Vital Signs Temp 97.3 F 06/20/17 00:00 Pulse 60 06/20/17 00:00 Resp 16 06/20/17 00:00 BP 123/62 06/20/17 00:00 Pulse Ox 94 06/20/17 00:00 - Laboratory Result Diagrams: 06/18/17 18:54 06/18/17 18:54 - Abnormal Exam Abdominal: tender (epigastric area on palpation) - Normal Exam General: awake, alert Cardiovascular: regular rhythm, regular rate Respiratory: clear bilaterally Assessment and Plan (1) Epigastric abdominal pain Current Visit: Yes Status: Acute Assessment and plan: H.Pylori pending. Continue empiric treatment for ulcer at this time. Hospital Course Summary Disclaimer: The visit summary below is not to be considered part of the above Progress Note. Sepsis Assessment - Evaluation Sepsis screening result: No Definite Risk
[2017-06-20] MEDS: MEPERIDINE 100 MG/ML INJECTION IVP PRN ×2 (08:51→20:24)
[2017-06-20] MEDS: PANTOPRAZOLE 40 MG INJECTION IVP SCH ×2 (08:52→21:18)
[2017-06-20] MEDS: ONDANSETRON 4 MG/2 ML INJECTION IVP PRN ×2 (11:02→16:53)
--- NOTE | 2017-06-20 18:26 | Progress Note ---
DATE 06/20/2017 FINDINGS Mrs. Lama this evening stated that she was still experiencing a component of abdominal discomfort. EXAM VITAL SIGNS: Afebrile, normotensive. Last recorded vitals include temperature 97.8, pulse 65, blood pressure 141/58, SAO2 97% on room air. HEART: Regular rate and rhythm. Normal S1 and S2 without gallops, murmurs or clicks. CHEST: Clear to auscultation bilaterally. ABDOMEN: Although the patient was complaining of ongoing pain her abdominal examination was markedly improved. She did not display tenderness this evening upon palpation with the exception of some minimal tenderness within the epigastric region. No evidence for guarding or rebound. LABORATORY/RADIOGRAPHIC EVALUATION The patient's serum H. pylori is still pending. No additional lab was obtained today. ASSESSMENT 81-year-old female with history for severe epigastric abdominal pain most likely secondary to duodenal ulcer. PLAN Continue with Carafate and intravenous PPI. I do believe the patient has made clinical improvement. Again, given her anticoagulation and placement of a coronary stent in the not too distant past, I would not recommend holding her anticoagulation and proceeding with EGD. Recommend continuing with empiric treatment for suspected peptic ulcer disease. Hopefully, the patient's abdominal pain will continue to improve and she will be able to be discharged in the near future. MARBIND
--- NOTE | 2017-06-20 20:22 | Progress Note ---
DATE 06/20/2017 SUBJECTIVE Patient is an 81-year-old female I am seeing today on hospital rounds. The patient doesn't think she is getting better. She is able to hold clear liquids down without much difficulty. PHYSICAL EXAM VITAL SIGNS: Blood pressure 141/58, pulse 65, respirations 20, oxygen saturation 97% on room air. GENERAL: She looks comfortable actually. She looks more comfortable today than yesterday. NECK: Supple. LUNGS: Clear. CARDIOVASCULAR: Regular rate and rhythm. ABDOMEN: Soft. The patient is tender but not as tender as on Sunday when I saw her in the clinic. Bowel sounds are normoactive. EXTREMITIES: No edema. NEUROLOGIC: Grossly intact. ASSESSMENT 1. Severe epigastric pain, most likely due to peptic ulcer disease. 2. Peptic ulcer disease based on CT findings. 3. Generalized fatigue. 4. Dizziness. 5. Chronic diarrhea. 6. Fibromyalgia. 7. Resting tremor. PLAN Resume patient's home medications. Continue current regimen. MTDD
[2017-06-20] MEDS: SALINE FLUSH 10ml SYRINGE IV PRN ×3 (20:24→23:47)
--- NOTE | 2017-06-20 20:26 | Progress Note ---
DATE 06/19/2017 SUBJECTIVE Patient complains of epigastric pain that is maybe a little bit better. OBJECTIVE VITAL SIGNS: Fairly stable. NECK: Supple. LUNGS: Clear. CARDIOVASCULAR: Regular rate and rhythm. ABDOMEN: Soft. The patient is tender in the epigastric region. Bowel sounds are normoactive. EXTREMITIES: No edema. NEUROLOGIC: Grossly intact. ASSESSMENT 1. Epigastric pain due to peptic ulcer disease. 2. Peptic ulcer disease based on CT findings. EGD confirmation is not obtainable due to patient's Plavix at this time. 3. Intractable nausea, much improved. 4. Generalized fatigue. The patient is getting some hydration. 5. Dizziness. 6. Chronic diarrhea. 7. Fibromyalgia. 8. Tremor. PLAN Continue current regimen. The patient will be made n.p.o. and start clear liquids and advance diet as tolerated. Dr. Handley is following the patient as well. [facility]
[2017-06-21] MEDS: MEPERIDINE 100 MG/ML INJECTION IVP PRN ×2 (03:18→13:03)
[2017-06-21] MEDS: D5-1/2NS with KCL 20mEq 1,000 ML IV SCH ×3 (04:31→23:02)
[2017-06-21] MEDS: SUCRALFATE 1 GM TABLET PO SCH ×4 (07:22→20:57)
[2017-06-21] MEDS: PANTOPRAZOLE 40 MG INJECTION IVP SCH ×2 (08:23→20:56)
[2017-06-21] MEDS: SALINE FLUSH 10ml SYRINGE IV PRN ×4 (08:28→22:53)
[2017-06-21] MEDS: ONDANSETRON 4 MG/2 ML INJECTION IVP PRN ×2 (08:28→22:49)
[2017-06-21] MEDS ORDERED: GABAPENTIN 400 MG CAPSULE PO PRN (08:42)
[2017-06-21] MEDS ORDERED: FUROSEMIDE 40 MG TABLET PO SCH (08:45)
[2017-06-21] MEDS ORDERED: MIRABEGRON 25mg TABLET PO SCH (09:00)
[2017-06-21] MEDS ORDERED: ASPIRIN *EC* 81 MG TABLET PO SCH (09:00)
[2017-06-21] MEDS ORDERED: CLOPIDOGREL 75 MG TABLET PO SCH (09:00)
[2017-06-21] MEDS ORDERED: FLUoxetine 20 MG CAPSULE PO SCH (09:00)
[2017-06-21] MEDS ORDERED: GABAPENTIN 400 MG PO PRN (10:45)
[2017-06-21] MEDS: METOPROLOL TARTRATE 25 MG PO SCH ×2 (11:22→17:21)
[2017-06-21] MEDS: MIRABEGRON 25 MG PO SCH (11:24)
[2017-06-21] MEDS: ASPIRIN 81 MG PO SCH (11:24)
[2017-06-21] MEDS: FLUOXETINE 20 MG PO SCH (11:25)
[2017-06-21] MEDS: CLOPIDOGREL 75 MG PO SCH (11:25)
[2017-06-21] MEDS: FUROSEMIDE 40 MG PO SCH ×2 (11:26→22:51)
[2017-06-21] MEDS: BIOTIN 5000 MCG PO SCH (11:27)
--- NOTE | 2017-06-21 15:15 | General Surgery Progress Note ---
Subjective Patient reports: still having pain (pretty much everywhere I palpate, states about the same as yesterday.), tolerating liquids well, no bowel movement (non documented), nausea (without emesis, states she has tried Tums, Peptobismol without relief), other (complaining that she is voiding frequently, no dysuria) - Vital Signs Last Vital Signs Temp 97.9 F 06/21/17 08:17 Pulse 57 L 06/21/17 08:17 Resp 18 06/21/17 08:17 BP 116/54 06/21/17 08:17 Pulse Ox 97 06/21/17 08:17 - Laboratory Result Diagrams: 06/18/17 18:54 06/18/17 18:54 Laboratory Tests 06/18/17 14:30 H. pylori IgG Antibody 0.24 - Abnormal Exam Abdominal: tender (throughout abd, seems slightly worse LLQ and epigastric area) - Normal Exam General: awake, alert Cardiovascular: regular rhythm, regular rate Respiratory: clear bilaterally, no labored breathing Psychiatric: normal affect Assessment and Plan (1) Epigastric abdominal pain Current Visit: Yes Status: Acute Assessment and plan: H.Pylori negative (<0.8) Continue with BID Protonix and Carafate for empiric treat of possible ulcer Advance diet to full liquids. (2) Generalized abdominal pain Current Visit: Yes Status: Acute Assessment and plan: Repeat lab this afternoon, CBC,CMP and Lipase. (3) Nausea alone Current Visit: Yes Status: Chronic Assessment and plan: Zofran already available and she had a dose this am. Will make available [facility] Course Summary Disclaimer: The visit summary below is not to be considered part of the above Progress Note. Sepsis Assessment - Evaluation Sepsis screening result: No Definite Risk
[2017-06-21] MEDS ORDERED: MAG-AL + SIM ORAL LIQUID 30ml PO PRN (15:27)
[2017-06-21] MEDS ORDERED: Bisacodyl EC TAB 5 MG TABLET PO ONE (15:34)
--- NOTE | 2017-06-21 16:41 | Progress Note ---
DATE 06/21/2017 SUBJECTIVE Ms. Lama was lying in bed in room #158 on the medical floor this morning when I saw her during rounds. She is complaining that she is not better. She had a rough night. She is holding her foot down. She had lunch and supper yesterday , clear liquids, and she did well. OBJECTIVE GENERAL: Patient overall looks comfortable, in no distress. VITAL SIGNS: Blood pressure 116/54 with a pulse of 57-64, respirations 18. Temperature 97.9. Saturation is 97% on room air. NECK: Supple. LUNGS: Clear. CARDIOVASCULAR: Regular rate and rhythm. ABDOMEN: Soft. Tenderness in the epigastric region, not as bad as three days ago when patient came to the hospital. Bowel sounds normoactive. EXTREMITIES: No cyanosis, no clubbing, no edema. NEURO: Exam grossly intact. ASSESSMENT 1. Epigastric pain due to peptic ulcer disease. 2. Peptic ulcer disease based on CT findings. 3. Nausea and vomiting, this has actually improved. 4. Generalized fatigue, multifactorial. 5. Fibromyalgia, is a big culprit of this patient's perceived pain. 6. Tremor. 7. Hypothyroidism based on TSH of less than 0.04. PLAN We are going to check a free T4 at this time. Ultrasound of the neck just because of the hypothyroidism. Continue IV Protonix as well as Carafate. Continue to advance diet as tolerated. As long as she is tolerating diet, then we will go ahead and do that. I want to go ahead and use Tramadol plus Tylenol combination for fibromyalgia; literature shows that this could provide patient with mild to moderate relief of fibromyalgia symptoms. MTDD
[2017-06-21] MEDS ORDERED: PRIMIDONE 50 MG PO SCH (21:00)
[2017-06-22] MEDS: MEPERIDINE 100 MG/ML INJECTION IVP PRN ×2 (04:33→09:28)
[2017-06-22] MEDS: SALINE FLUSH 10ml SYRINGE IV PRN (04:34)
[2017-06-22] MEDS: SUCRALFATE 1 GM TABLET PO SCH ×3 (06:50→17:06)
[2017-06-22] MEDS ORDERED: POTASSIUM CHLORIDE 10 MEQ PO SCH (08:00)
[2017-06-22] MEDS: FLUOXETINE 20 MG PO SCH (09:12)
[2017-06-22] MEDS: ASPIRIN 81 MG PO SCH (09:12)
[2017-06-22] MEDS: MIRABEGRON 25 MG PO SCH (09:12)
[2017-06-22] MEDS: CLOPIDOGREL 75 MG PO SCH (09:13)
[2017-06-22] MEDS: METOPROLOL TARTRATE 25 MG PO SCH (09:13)
[2017-06-22] MEDS: PANTOPRAZOLE 40 MG INJECTION IVP SCH (09:15)
[2017-06-22] MEDS: BIOTIN 5000 MCG PO SCH (09:20)
[2017-06-22] MEDS: D5-1/2NS with KCL 20mEq 1,000 ML IV SCH (09:27)
[2017-06-22] MEDS: FUROSEMIDE 40 MG PO SCH (11:22)
[2017-06-22] MEDS ORDERED: ACETAMINOPHEN 325 MG TABLET PO PRN (14:30)
[2017-06-22] MEDS ORDERED: TRAMADOL 50 MG TABLET PO SCH (14:30)
[2017-06-22] MEDS ORDERED: ONDANSETRON ODT 4 MG TABLET PO PRN (14:34)
--- NOTE | 2017-06-22 14:39 | Discharge Instructions ---
Discharge Plan - Med Rec/Dispo Referrals/Follow Up: Phil Chao MD [Physician] - 1 Week [place] Instructions: Acute Abdominal Pain (GEN) Prescriptions: New LORazepam INJ [Ativan Inj] 0.5 mg IVP HS PRN vial PRN Reason: Insomnia Acetaminophen Supp [Tylenol Supp] 650 mg MA Q4-6HR PRN supp PRN Reason: Pain Ondansetron Inj [Zofran] 4 mg IVP Q4-6HR PRN vial PRN Reason: Nausea &/Or Vomiting Pantoprazole IV [Protonix IV] 40 mg IVP BID vial Sucralfate [Carafate] 1 gm PO ACHS tablet Meperidine [Demerol] 25 mg IVP Q3-4HR PRN vial PRN Reason: Pain Saline Flush [IV Flush] 10 - 80 ml IV PRN PRN syringe PRN Reason: Flushing Continue Aspirin [Aspirin EC] 81 mg PO DAILY #0 Nitroglycerin [Nitrostat] 0.4 mg PO Q5MIN PRN #0 PRN Reason: CHEST PAIN Gabapentin [Neurontin] 400 mg PO HS PRN MDD 5 PRN Reason: pain FLUoxetine [Prozac] 20 mg PO DAILY Clopidogrel Bisulfate [Clopidogrel] 75 mg PO DAILY #0 Potassium Chloride 20 meq PO DAILY Vitamin D3 sennosides-docusate sodium 8.6 mg-50 mg tablet 1 tab PO BID PRN PRN Reason: Constipation biotin 5,000 mcg disintegrating tablet 5,000 mcg PO DAILY tab Lasix (Furosemide) 40 mg tablet 40 mg PO Q12H #60 tab mirabegron ER 25 mg tablet,extended release 24 hr 25 mg PO DAILY metoprolol tartrate 25 mg tablet 12.5 mg PO BID #30 tab primidone 50 mg tablet 100 mg PO HS #180 tab multivitamin tablet 1 tab PO DAILY #30 tab Discontinued alprazolam 0.25 mg tablet 0.25 mg PO BID PRN PRN Reason: Anxiety No Action Linaclotide [Linzess] 145 mcg PO 3XW PRN PRN Reason: Diarrhea
[2017-06-22] MEDS ORDERED: PANTOPRAZOLE 20 MG TABLET PO SCH (14:45)
[2017-06-22 15:18] VITALS: BP 133/68; PULSE 55; RESP 20; TEMP 97.2; O2SAT 99
--- NOTE | 2017-06-22 16:05 | Progress Note ---
DATE 06/22/2017 FINDINGS Ms. Lama this afternoon states that she was feeling significantly better. She still is having some mild nausea and epigastric discomfort. She has been eating well today. States her primary complaint is now that of her chronic myalgias. Patient states that her "back and neck are hurting." EXAM VITAL SIGNS: Temperature 98.2, pulse 52, respirations 16, blood pressure 102/52 , SAO2 98% room air. CHEST: Clear to auscultation bilaterally. HEART: Regular rate and rhythm. Normal S1 and S2 without gallops, murmurs or clicks. ABDOMEN: Palpation of the abdomen today reveals it to be soft and essentially nontender. The patient only complained of some minimal discomfort with firm palpation today within the epigastric region. No evidence for guarding or rebound. LABORATORY/RADIOGRAPHIC EVALUATION Yesterday I did repeat a CBC, CMP and lipase levels, all of which continue to be within normal limits. Her lipase was 317 and is now down to 87. ASSESSMENT 81-year-old female with multiple medical comorbidities who presented with epigastric pain most likely a result of duodenal ulcer disease. Patient showing marked improvement. PLAN I did speak with her PCP, Dr. Chao, today and informed him that I thought she could be discharged to home. Would recommend continuing with current medical therapy. I do believe that she could be on a proton pump inhibitor on a b.i.d. basis and Carafate 1 g p.o. q.i.d. over the next four to six weeks. Would then recommend decreasing her PPI to a daily dose thereafter. I also informed the patient of my recommendations and that I felt she could be discharged at this point in time. Patient at this time is to follow up with me on a p.r.n. basis. [facility] SERVICESHardy
[2017-06-22] MEDS ORDERED: PANTOPRAZOLE 40 MG TABLET PO SCH (17:00)
--- NOTE | 2017-06-23 10:32 | Progress Note ---
DATE 06/22/2017 SUBJECTIVE Mrs. Lama was seen earlier today by myself and Dr. Handley. She is still complaining of a lot of pain - pretty much the same complaints she gave to myself and Dr. Handley almost on a daily basis. Physical examination really did not show this extent of discomfort. She is less tender on palpation over the last few days. Patient is actually eating her food and clearing her breath by lunch this afternoon when we saw her. Dr. Handley and I told the patient that we plan to send her home today and she will get better sooner at home. We will send her home on the same medication, Protonix, and also some oral pain medication. I had a lengthy discussion with the patient's son earlier today also. We were hoping that we can have the patient go to a alf but she doesn't qualify for that. Case Management has arranged for home health assistance. The patient basically lives in the same house as her son. PHYSICAL EXAM GENERAL: She looks comfortable. She is cheerful and very conversant with both Dr. Handley and me this afternoon. VITAL SIGNS: Blood pressure 102/52 earlier today, pulse 50-57. NECK: Supple. LUNGS: Clear. CARDIOVASCULAR: Regular rate and rhythm. ABDOMEN: Soft. Patient is mildly tender today pretty much in all quadrants. Bowel sounds are normoactive. EXTREMITIES: No cyanosis, clubbing or edema. NEUROLOGIC: Grossly intact. ASSESSMENT 1. Peptic ulcer disease. 2. Epigastric pain due to #1. 3. Nausea and vomiting due to #1. 4. Chronic epigastric pain. 5. Generalized fatigue, multifactorial. 6. Fibromyalgia. 7. Tremor. 8. Hyperthyroidism based on TSH of less than 0.04. Will follow up the abnormal TSH on an outpatient basis. Will go ahead and repeat that to make sure this is not due to acute illness. PLAN Dismiss patient to home today. The patient is hesitant about going home today because she feels like she can't stay by herself. Will discuss with her son who is coming shortly to talk to patient. Will try her on oral pain management and see how she tolerates that. Discharge order has been put into the computer. Will see patient back in my office in one week or sooner. VARINDER
== END 2017-06-22 17:45 | disposition home health service (06) | DRG 384 ==
LOC: MED
PROVIDERS: ADMIT Family Medicine; ATTEND Family Medicine

== ENCOUNTER 2017-09-19 14:41 | Inpatient (IN) ==
[2017-09-19] MEDS ORDERED: NS 1,000 ML IV ONE (14:58)
[2017-09-19] MEDS ORDERED: ACETAMINOPHEN 325 MG SUPPOSITORY PR ONE (14:58)
--- NOTE | 2017-09-19 14:58 | Emergency Department Report ---
General Adult HPI - General Chief complaint: Fall <Villa Blackmon Q - 09/23/17 21:03> Stated complaint: migraine,UTI <Villa Blackmon Q - 09/23/17 21:03> Time Seen by Provider: 09/19/17 14:46 <Villa Blackmon Q - 09/23/17 21:03> Source: patient <Fanta Sinha - 09/19/17 15:17> Mode of arrival: EMS <Fanta Sinha - 09/19/17 15:17> Limitations: no limitations <Fanta Sinha - 09/19/17 15:17> - History of Present Illness HPI narrative: 82 YO F brought to ED via EMS after fall today at her home today. Patient reports head, neck, upper back and bilateral hip pain. EMS reports patient fell yesterday and was down for 5 hours before her son found her. Patient was seen in our ED on 09-17-17 for 2 days hx. of shakiness/ dizziness and headache. Patient was dx. with an UTI and sent home on Bactrim DS. Patient reports today feeling dizzy when she goes from lying/sitting to standing. Patient arrives ED with fever of 104 and is chilling. <Fanta Sinha - 09/19/17 15:44> - Related Data Home Medications Medication Instructions Recorded Confirmed Clopidogrel Bisulfate [Clopidogrel] 75 mg PO DAILY #0 02/04/17 09/19/17 Potassium Chloride 20 meq PO DAILY 06/18/17 09/19/17 Cetirizine [Zyrtec] 1 tab PO DAILY 09/17/17 09/19/17 FLUoxetine [Prozac] 20 mg PO DAILY 09/17/17 09/19/17 Furosemide [Lasix] 40 mg PO BID 09/17/17 09/19/17 Gabapentin [Neurontin] 400 mg PO HS 09/17/17 09/19/17 Linaclotide [Linzess] 145 mcg PO DAILY 09/17/17 09/19/17 Metoprolol Tartrate [Lopressor] 12.5 mg PO BIDWM 09/17/17 09/19/17 Mirabegron [Myrbetriq] 25 mg PO DAILY 09/17/17 09/19/17 Pantoprazole Sodium [Protonix] 40 mg PO DAILY 09/17/17 09/19/17 PredniSONE [Deltasone] 5 mg PO WB 09/17/17 09/19/17 Primidone [Mysoline] 100 mg PO HS 09/17/17 09/19/17 Sucralfate [Carafate] 1 gm PO QID 09/17/17 09/19/17 Tramadol [Ultram] 50 mg PO QID PRN 09/17/17 09/19/17 Previous Rx's Medication Instructions Recorded Ondansetron Odt [Zofran Po] 4 mg PO Q4H PRN #60 tab 06/22/17 Prochlorperazine Maleate 10 mg PO Q6-8HR PRN #30 tab 08/05/17 [Compazine] <Villa Blackmon Q - 09/23/17 21:03> Allergies Allergy/AdvReac Type Severity Reaction Status Date / Time codeine Allergy Verified 09/19/17 14:43 grass pollen Allergy Verified 09/19/17 14:43 levofloxacin [From Levaquin] Allergy Verified 09/19/17 21:22 morphine Allergy Verified 09/19/17 14:43 nitrofurantoin Allergy Verified 09/19/17 14:43 Penicillins Allergy Verified 09/19/17 14:43 <Villa Blackmon Q - 09/23/17 21:03> Review of Systems All systems: reviewed and negative except as stated <Fanta Sinha A - 15:38> [facility] Patient Stated Medical History Migraine Yes Cataracts Yes Hearing Loss Yes Macular Degeneration Yes Hypertension Yes Diabetes Mellitus Type 2 Yes Hx Incontinence Yes Hx Renal Disease No Hx Urinary Tract Infection Yes Depression Yes Post Menopausal Yes Clinic Medical History (Last Updated 07/25/17 @ 09:06 by Neetu Christiansen Negrito) Failure of outpatient treatment (Acute Medical) UTI (urinary tract infection) (Acute Medical) Multiple falls (Acute Medical) Bacteremia, escherichia coli (Acute Medical) Sepsis (Acute Medical) UTI/pulmonary sources Ambulatory dysfunction (Acute Medical) falls x 2 [employer] Polymyalgia rheumatica (Acute Medical) Epigastric abdominal pain (Acute Medical) Generalized abdominal pain (Acute Medical) Generalized abdominal pain (Acute Medical) Nausea alone (Chronic Medical) Anxiety (Chronic Medical) Depression (Chronic Medical) Fibromyalgia (Chronic Medical) Psoriasis (Chronic Medical) Spinal stenosis (Chronic Medical) Type 2 diabetes mellitus (Chronic Medical) not needing insulin Gastroenteritis (Inactive Medical) Medication side effect (Inactive Medical) Migraine (Inactive Medical) UTI (urinary tract infection) (Inactive Medical) UTI (urinary tract infection) (Inactive Medical) <Villa Blackmon Q - 09/23/17 21:03> Surgical History: Heart Cath with stents mid and proximal LAD 01-02-17 Dr. Clifton Garcia,. EGD antritis 11-11-15 DR. Welch,. EGD treated for H.Pylori 08-25-14 Dr. Kassie Wilson,. Colonoscopy snare polypectomy diverticulosis 12-09-13 Dr. Kassie Wilson, . tonsillectomy,. hysterectomy,. gall bladder surgery,. bladder repair,. hip surgery X 2,. knee surgery,. cataract surgery,. Gallbladder surgery < Fanta Sinha 09/19/17 14:58> Family History: Family History Unknown Diabetes Heart disease Stomach problems Hypertension <Villa Blackmon Q - 09/23/17 21:03> - Social History Smoking status: Former smoker <Fanta Sinha 09/19/17 14:58> Household members: other (son) <Fanta Sinha 09/19/17 15:44> Current occupational status: retired <Fanta Sinha 09/19/17 15:44> Physical Exam - Limitations Limitations: no limitations <Fanta Sinha 09/19/17 15:44> - General General appearance: alert <Fanta Sinha 09/19/17 15:44> - Normal Exams: Head:: Normocephalic without trauma <Fanta Sinha 09/19/17 15:44> Eyes:: Pupils are PERRLA w/ EOMI, No scleral icterus, irritation <Fanta Sinha 09/19/17 15:44> ENMT:: No facial trauma, nasal exudates <Fanta Sinha 09/19/17 15:44> Chest/Respirations:: Clear all hoang, with good airflow, and symmetry bilaterally <Fanta Sinha 09/19/17 15:44> Cardiovascular:: Regular rate and rhythm <Fanta Sinha 09/19/17 15:44> Abdomen:: Bowel sounds positive, soft, non-tender, non-distended <Fanta Sinha 09/19/17 15:44> Neurological:: Patient is alert, and oriented, cranial nerves, motor/sensory/ cerebellar, exams w/o gross deficits, to observation <Fanta Sinha - 09/19 15:44> Psychiatric:: Patient exhibits, appropriate attention, emotion and affect < Fanta Sinha - 09/19/17 15:44> Course - Consultations Consultation #1: I discussed patient's HPI, PMH, labs, VS, CTs/x-rays, treatment in the ED with Dr. Chao. Dr. Chao will admit in patient for failed outpatient treatment for UTI and falls. <Fanta Sinha - 09/22/17 18:23> Vital Signs Temperature 104.1 F H 09/19/17 14:49 Pulse Rate 81 09/19/17 14:49 Respiratory Rate 25 H 09/19/17 14:49 Blood Pressure 129/67 09/19/17 14:49 Pulse Oximetry 96 09/19/17 14:49 Temperature 97.4 F 09/23/17 15:00 Pulse Rate 64 09/23/17 15:00 Respiratory Rate 16 09/23/17 15:00 Blood Pressure 141/66 H 09/23/17 15:00 Pulse Oximetry 96 09/23/17 15:00 <Villa Blackmon - 09/23/17 21:03> Vital Signs Temperature 104.1 F H 09/19/17 14:49 Pulse Rate 81 09/19/17 14:49 Respiratory Rate 25 H 09/19/17 14:49 Blood Pressure 129/67 09/19/17 14:49 Pulse Oximetry 96 09/19/17 14:49 Temperature 97.4 F 09/23/17 15:00 Pulse Rate 64 09/23/17 15:00 Respiratory Rate 16 09/23/17 15:00 Blood Pressure 141/66 H 09/23/17 15:00 Pulse Oximetry 96 09/23/17 15:00 <Fanta Sinha - 09/19/17 15:17> Medical Decision Making - [facility] Narrative Medical decision making narrative: Patient given initial liter of NS on arrival due to fever and concern for possible sepsis. Patient fever improving after fluids and Tylenol suppository. WBC 10.5 Chemistry indicates patient is dehydrated Slight increase in creatinine from 1.1 Sunday to 1.4 today CK 707 with slight increase in ALT and AST Lactate 1.3 Urine culture from - indicates e-coli which Bactrim is resistant. Patient given 500mg of IV Levaquin in the ED. VS improving with fluids and Tylenol. I discussed labs, CT and x-ray findings with patient and her son and answered questions. Dr. Liang will admit inpatient. <SinhaFanta A - 09/22/17 18:41> - Differential Diagnosis Sepsis, pyelonephritis, UTI, pneumonia <Fanta Sinha - 09/19/17 15:44> - Medical Records Medical records reviewed: Yes: I reviewed the patient's medical records. < Haley Sinhas A - 09/19/17 21:10> - Lab Data Result diagrams: 09/23/17 03:52 09/23/17 03:52 <Villa Blackmon - 09/23/17 21:03> Lab Results 09/19/17 09/19/17 09/19/17 Range/Units 15:25 15:28 16:01 WBC 10.5 (4.5-11.0) T/MM3 RBC 4.18 (4.00-5.20) M/MM3 Hgb 13.4 (12-16) GM/DL Hct 40.8 (36-46) % MCV 97.6 (80-100) UM3 MCH 32.1 (26-34) UUG MCHC 32.8 (31-37) GM/DL RDW Std Deviation 45.8 (36.9-50.2) FL Plt Count 156 (130-400) T/MM3 MPV 10.2 (9.4-12.4) UM3 Immature Gran % (Auto) Not performed Neut % (Auto) Not performed Lymph % (Auto) Not performed Wharton % (Auto) Not performed Eos % (Auto) Not performed Baso % (Auto) Not performed Neut # (Auto) Not performed Lymph # (Auto) Not performed Wharton # (Auto) Not performed Eos # (Auto) Not performed Baso # (Auto) Not performed Abs Immat Gran (auto) Not performed Neutrophils % (Manual) 88.0 H (33-66) % Band Neutrophils % 1.0 (0-6) % Lymphocytes % (Manual) 8.0 L (23-45) % Monocytes % (Manual) 3.0 (0-9.0) % Neutrophils # (Manual) 9.2 H (1.8-7.7) T/MM3 Band Neutrophils # 0.1 T/MM3 Lymphocytes # (Manual) 0.8 L (1-4.8) T/MM3 Monocytes # (Manual) 0.3 (0-0.8) T/MM3 RBC Morph Comment Normal Turbidity < 20 (0-20) Sodium 139 (134-144) MEQ/L Potassium 4.2 (3.6-5) MEQ/L Chloride 110 H (98-107) MEQ/L Carbon Dioxide 20 L (22-30) MEQ/L Anion Gap 9 (5-15) MEQ/L BUN 34.0 H (7-17) MG/DL Creatinine 1.4 H D (0.7-1.2) MG/DL GFR Calculation 36 BUN/Creatinine Ratio 24 (6-26) RATIO Glucose 119 H (65-110) MG/DL Calculated Osmolality 277 (261-280) MOSM/KG Calcium 8.0 L D (8.4-10.2) MG/DL Total Bilirubin 1.00 (0.20-1.30) MG/DL Icterus Index < 2 (0-7) AST 47 H (14-36) U/L ALT 60 H (9-52) U/L Alkaline Phosphatase 70 (38-126) U/L Creatine Kinase 707 H (30-135) U/L Total Protein 5.9 L (6.3-8.2) G/DL Albumin 3.1 L (3.5-5.0) G/DL Globulin 2.8 (2.4-3.6) G/DL Albumin/Globulin Ratio 1.1 (1.1-2.2) RATIO Plasma Lactate 1.2 (0.6-2.2) MMOL/L Procalcitonin NG/ML Specimen Hemolysis < 15 (0-25) Ur Collection Type Urine, catheter Urine Color Yellow (YELLOW) Urine Clarity Cloudy Urine pH 6.0 (5.0-8.0) Ur Specific Hodges 1.020 (1.015-1.025) Urine Protein 1+ A (NEGATIVE) Urine Glucose (UA) Negative (NEGATIVE) Urine Ketones Negative (NEGATIVE) Urine Occult Blood 2+ A (NEGATIVE) Urine Nitrate Positive A (NEGATIVE) Urine Bilirubin Negative (NEGATIVE) Urine Urobilinogen 0.2 (NORMAL) EU/DL Ur Leukocyte Esterase 2+ A (NEGATIVE) Urine RBC 5-10 H (0-3) /HPF Urine WBC 30-50 H (0-5) /HPF Urine Bacteria 2+ H (NEGATIVE) Ur Culture Indicated? Cult reflexed &setup 09/19/17 Range/Units 16:01 WBC (4.5-11.0) T/MM3 RBC (4.00-5.20) M/MM3 Hgb (12-16) GM/DL Hct (36-46) % MCV (80-100) UM3 MCH (26-34) UUG MCHC (31-37) GM/DL RDW Std Deviation (36.9-50.2) FL Plt Count (130-400) T/MM3 MPV (9.4-12.4) UM3 Immature Gran % (Auto) Neut % (Auto) Lymph % (Auto) Wharton % (Auto) Eos % (Auto) Baso % (Auto) Neut # (Auto) Lymph # (Auto) Wharton # (Auto) Eos # (Auto) Baso # (Auto) Abs Immat Gran (auto) Neutrophils % (Manual) (33-66) % Band Neutrophils % (0-6) % Lymphocytes % (Manual) (23-45) % Monocytes % (Manual) (0-9.0) % Neutrophils # (Manual) (1.8-7.7) T/MM3 Band Neutrophils # T/MM3 Lymphocytes # (Manual) (1-4.8) T/MM3 Monocytes # (Manual) (0-0.8) T/MM3 RBC Morph Comment Turbidity (0-20) Sodium (134-144) MEQ/L Potassium (3.6-5) MEQ/L Chloride (98-107) MEQ/L Carbon Dioxide (22-30) MEQ/L Anion Gap (5-15) MEQ/L BUN (7-17) MG/DL Creatinine (0.7-1.2) MG/DL GFR Calculation BUN/Creatinine Ratio (6-26) RATIO Glucose (65-110) MG/DL Calculated Osmolality (261-280) MOSM/KG Calcium (8.4-10.2) MG/DL Total Bilirubin (0.20-1.30) MG/DL Icterus Index (0-7) AST (14-36) U/L ALT (9-52) U/L Alkaline Phosphatase (38-126) U/L Creatine Kinase (30-135) U/L Total Protein (6.3-8.2) G/DL Albumin (3.5-5.0) G/DL Globulin (2.4-3.6) G/DL Albumin/Globulin Ratio (1.1-2.2) RATIO Plasma Lactate (0.6-2.2) MMOL/L Procalcitonin 1.93 NG/ML Specimen Hemolysis (0-25) Ur Collection Type Urine Color (YELLOW) Urine Clarity Urine pH (5.0-8.0) Ur Specific Hodges (1.015-1.025) Urine Protein (NEGATIVE) Urine Glucose (UA) (NEGATIVE) Urine Ketones (NEGATIVE) Urine Occult Blood (NEGATIVE) Urine Nitrate (NEGATIVE) Urine Bilirubin (NEGATIVE) Urine Urobilinogen (NORMAL) EU/DL Ur Leukocyte Esterase (NEGATIVE) Urine RBC (0-3) /HPF Urine WBC (0-5) /HPF Urine Bacteria (NEGATIVE) Ur Culture Indicated? <Villa Blackmon Q - 09/23/17 21:03> Lab Results 09/19/17 09/19/17 09/19/17 Range/Units 15:25 15:28 16:01 WBC 10.5 (4.5-11.0) T/MM3 RBC 4.18 (4.00-5.20) M/MM3 Hgb 13.4 (12-16) GM/DL Hct 40.8 (36-46) % MCV 97.6 (80-100) UM3 MCH 32.1 (26-34) UUG MCHC 32.8 (31-37) GM/DL RDW Std Deviation 45.8 (36.9-50.2) FL Plt Count 156 (130-400) T/MM3 MPV 10.2 (9.4-12.4) UM3 Immature Gran % (Auto) Not performed Neut % (Auto) Not performed Lymph % (Auto) Not performed Wharton % (Auto) Not performed Eos % (Auto) Not performed Baso % (Auto) Not performed Neut # (Auto) Not performed Lymph # (Auto) Not performed Wharton # (Auto) Not performed Eos # (Auto) Not performed Baso # (Auto) Not performed Abs Immat Gran (auto) Not performed Neutrophils % (Manual) 88.0 H (33-66) % Band Neutrophils % 1.0 (0-6) % Lymphocytes % (Manual) 8.0 L (23-45) % Monocytes % (Manual) 3.0 (0-9.0) % Neutrophils # (Manual) 9.2 H (1.8-7.7) T/MM3 Band Neutrophils # 0.1 T/MM3 Lymphocytes # (Manual) 0.8 L (1-4.8) T/MM3 Monocytes # (Manual) 0.3 (0-0.8) T/MM3 RBC Morph Comment Normal Turbidity < 20 (0-20) Sodium 139 (134-144) MEQ/L Potassium 4.2 (3.6-5) MEQ/L Chloride 110 H (98-107) MEQ/L Carbon Dioxide 20 L (22-30) MEQ/L Anion Gap 9 (5-15) MEQ/L BUN 34.0 H (7-17) MG/DL Creatinine 1.4 H D (0.7-1.2) MG/DL GFR Calculation 36 BUN/Creatinine Ratio 24 (6-26) RATIO Glucose 119 H (65-110) MG/DL Calculated Osmolality 277 (261-280) MOSM/KG Calcium 8.0 L D (8.4-10.2) MG/DL Total Bilirubin 1.00 (0.20-1.30) MG/DL Icterus Index < 2 (0-7) AST 47 H (14-36) U/L ALT 60 H (9-52) U/L Alkaline Phosphatase 70 (38-126) U/L Creatine Kinase 707 H (30-135) U/L Total Protein 5.9 L (6.3-8.2) G/DL Albumin 3.1 L (3.5-5.0) G/DL Globulin 2.8 (2.4-3.6) G/DL Albumin/Globulin Ratio 1.1 (1.1-2.2) RATIO Plasma Lactate 1.2 (0.6-2.2) MMOL/L Procalcitonin NG/ML Specimen Hemolysis < 15 (0-25) Ur Collection Type Urine, catheter Urine Color Yellow (YELLOW) Urine Clarity Cloudy Urine pH 6.0 (5.0-8.0) Ur Specific Hodges 1.020 (1.015-1.025) Urine Protein 1+ A (NEGATIVE) Urine Glucose (UA) Negative (NEGATIVE) Urine Ketones Negative (NEGATIVE) Urine Occult Blood 2+ A (NEGATIVE) Urine Nitrate Positive A (NEGATIVE) Urine Bilirubin Negative (NEGATIVE) Urine Urobilinogen 0.2 (NORMAL) EU/DL Ur Leukocyte Esterase 2+ A (NEGATIVE) Urine RBC 5-10 H (0-3) /HPF Urine WBC 30-50 H (0-5) /HPF Urine Bacteria 2+ H (NEGATIVE) Ur Culture Indicated? Cult reflexed &setup 09/19/17 Range/Units 16:01 WBC (4.5-11.0) T/MM3 RBC (4.00-5.20) M/MM3 Hgb (12-16) GM/DL Hct (36-46) % MCV (80-100) UM3 MCH (26-34) UUG MCHC (31-37) GM/DL RDW Std Deviation (36.9-50.2) FL Plt Count (130-400) T/MM3 MPV (9.4-12.4) UM3 Immature Gran % (Auto) Neut % (Auto) Lymph % (Auto) Wharton % (Auto) Eos % (Auto) Baso % (Auto) Neut # (Auto) Lymph # (Auto) Wharton # (Auto) Eos # (Auto) Baso # (Auto) Abs Immat Gran (auto) Neutrophils % (Manual) (33-66) % Band Neutrophils % (0-6) % Lymphocytes % (Manual) (23-45) % Monocytes % (Manual) (0-9.0) % Neutrophils # (Manual) (1.8-7.7) T/MM3 Band Neutrophils # T/MM3 Lymphocytes # (Manual) (1-4.8) T/MM3 Monocytes # (Manual) (0-0.8) T/MM3 RBC Morph Comment Turbidity (0-20) Sodium (134-144) MEQ/L Potassium (3.6-5) MEQ/L Chloride (98-107) MEQ/L Carbon Dioxide (22-30) MEQ/L Anion Gap (5-15) MEQ/L BUN (7-17) MG/DL Creatinine (0.7-1.2) MG/DL GFR Calculation BUN/Creatinine Ratio (6-26) RATIO Glucose (65-110) MG/DL Calculated Osmolality (261-280) MOSM/KG Calcium (8.4-10.2) MG/DL Total Bilirubin (0.20-1.30) MG/DL Icterus Index (0-7) AST (14-36) U/L ALT (9-52) U/L Alkaline Phosphatase (38-126) U/L Creatine Kinase (30-135) U/L Total Protein (6.3-8.2) G/DL Albumin (3.5-5.0) G/DL Globulin (2.4-3.6) G/DL Albumin/Globulin Ratio (1.1-2.2) RATIO Plasma Lactate (0.6-2.2) MMOL/L Procalcitonin 1.93 NG/ML Specimen Hemolysis (0-25) Ur Collection Type Urine Color (YELLOW) Urine Clarity Urine pH (5.0-8.0) Ur Specific Hodges (1.015-1.025) Urine Protein (NEGATIVE) Urine Glucose (UA) (NEGATIVE) Urine Ketones (NEGATIVE) Urine Occult Blood (NEGATIVE) Urine Nitrate (NEGATIVE) Urine Bilirubin (NEGATIVE) Urine Urobilinogen (NORMAL) EU/DL Ur Leukocyte Esterase (NEGATIVE) Urine RBC (0-3) /HPF Urine WBC (0-5) /HPF Urine Bacteria (NEGATIVE) Ur Culture Indicated? <Fanta Sinha 09/19/17 15:17> - Radiology Data Radiology results reviewed: Yes: I reviewed the patient's radiology results. < Fanta Sinha 09/19/17 21:10> CT head: no acute intracranial findings (Dr. Welch) CT c-spine, t-spine and l-spine: no acute osseous findings (Dr. Welch) CXR: no acute cardiopulmonary findings (Dr. Blackmon) Pelvis with bilateral hip: no acute osseous findings (Dr. Blackmon) <Fanta Sinha 09/19/17 21:10> Disposition Clinical Impression: Failure of outpatient treatment, Multiple falls UTI (urinary tract infection) Qualifiers: Urinary tract infection type: site unspecified Hematuria presence: with hematuria Qualified Code(s): N39.0 - Urinary tract infection, site not specified <Villa Blackmon Q - 09/23/17 21:03> Disposition: 02 Acute Care Hosp, Other <Villa Blackmon Q - 09/23/17 21:03> Condition: Improved <Villa Blackmon Q - 09/23/17 21:03> Instructions: <Villa Blackmon Q - 09/23/17 21:03> Prescriptions: No Action Ondansetron Odt [Zofran Po] 4 mg PO Q4H PRN #60 tab PRN Reason: Nausea &/Or Vomiting Prochlorperazine Maleate [Compazine] 10 mg PO Q6-8HR PRN #30 tab PRN Reason: N/V/CRAMPS Metoprolol Tartrate [Lopressor] 12.5 mg PO BIDWM Mirabegron [Myrbetriq] 25 mg PO DAILY Furosemide [Lasix] 40 mg PO BID PredniSONE [Deltasone] 5 mg PO WB Pantoprazole Sodium [Protonix] 40 mg PO DAILY Gabapentin [Neurontin] 400 mg PO HS Clopidogrel Bisulfate [Clopidogrel] 75 mg PO DAILY #0 Potassium Chloride 20 meq PO DAILY Linaclotide [Linzess] 145 mcg PO DAILY Primidone [Mysoline] 100 mg PO HS FLUoxetine [Prozac] 20 mg PO DAILY Tramadol [Ultram] 50 mg PO QID PRN PRN Reason: Pain Cetirizine [Zyrtec] 1 tab PO DAILY Sucralfate [Carafate] 1 gm PO QID <Villa Blackmon Q - 09/23/17 21:03> Referrals: Phil Chao MD [Family Provider] - <Villa Blackmon Q - 09/23 21:03> Forms: <Villa Blackmon Q - 09/23/17 21:03> - Seen By: midlevel <Fanta Sinha - 09/19/17 18:32>
[2017-09-19] MEDS ORDERED: FentaNYL 250 MCG/5 ML INJECTION IVP ONE (15:07)
[2017-09-19] MEDS: SALINE FLUSH 10ml SYRINGE IVF PRN ×2 (15:19→17:18)
[2017-09-19] MEDS ORDERED: FentaNYL 100 MCG/2 ML INJECTION IVP ONE ×2 (15:30→17:05)
[2017-09-19] MEDS ORDERED: LEVOFLOXACIN PB 500 MG/100 ML BAG IV SCH (15:30)
--- NOTE | 2017-09-19 16:50 | CT Scan Report ---
Indication: fall, pain at base of head PROCEDURE: CT head/brain wo con: Encounter: Initial Comparison: September 17, 2017 Technique: Axial CT images through the head were performed without contrast. Iterative Reconstruction dose reducing technique was utilized. FINDINGS: The ventricles are of normal size, shape, and configuration for the patient's age. There is no evidence of acute intracranial hemorrhage, midline displacement, or mass effect. There are scattered areas of low attenuation in the white matter which most likely represent changes of chronic microvascular ischemia. The CT attenuation of the brain parenchyma is otherwise normal within the cerebellum, brain stem, and cerebral hemispheres. The tympanic cavities and mastoid air cells are free of appreciable disease. There are no definite fractures of the skull base, calvarium, or visualized portion of the midface. IMPRESSION: No CT evidence of acute traumatic intracranial injury. .
--- NOTE | 2017-09-19 17:03 | CT Scan Report ---
Indication: pain C 1-7 after fall PROCEDURE: CT cervical spine wo con: Encounter: Initial Comparison: None Technique: Axial CT images through the cervical spine were performed without contrast. Coronal and sagittal reformatted images were also obtained. Automated Exposure Control and Iterative Reconstruction dose reducing techniques were utilized. FINDINGS: The alignment of the cervical spine is straightened with degenerative grade 1 anterolisthesis of C3 on C4 and T1 on T2. Multilevel degenerative changes are present. There is no evidence of acute fracture or subluxation of the cervical spine. The facet joints are well aligned with preservation of the intervertebral disk and facet joints. The atlantoaxial articulation, dens, and upper cervical spine demonstrate no subluxation. Small area of groundglass opacity in the left apex could be infectious or inflammatory. IMPRESSION: No acute traumatic abnormality of the cervical spine. .
--- NOTE | 2017-09-19 17:13 | CT Scan Report ---
Indication: Fall with back pain, TTP T 1-7 PROCEDURE: CT thoracic spine wo con: Encounter: Initial Comparison: None: Technique: Axial noncontrast CT imaging of the thoracic spine was performed with coronal and sagittal two-dimensional reformats. Automated Exposure Control and Iterative Reconstruction dose reducing techniques were utilized. FINDINGS: Alignment of the thoracic spine is normal for the patient's age. There are minimal, age appropriate, degenerative changes within the intervertebral disk and facet joints in the thoracic spine. No fractures are evident in the thoracic spine. The vertebral bodies and facet joints are normally aligned. There is no evidence of significant spinal stenosis, foraminal compromise, epidural hematoma, or significant disk herniation. Mild groundglass opacity in the left upper and lower lobes. Minimal dependent atelectasis. IMPRESSION: No acute traumatic abnormality of the thoracic spine .
--- NOTE | 2017-09-19 17:15 | CT Scan Report ---
Indication: Fall with bruising and pain sacrum PROCEDURE: CT lumbar spine wo con: Encounter: Initial Comparison: None Technique: Axial noncontrast CT imaging of the lumbar spine was performed with coronal and sagittal two-dimensional reformats. Automated Exposure Control and Iterative Reconstruction dose reducing techniques were utilized. FINDINGS: The alignment of the lumbar spine is normal for the patient's age. No fractures or traumatic subluxation of the lumbar spine is evident. The facet joints are well aligned with preservation of the intervertebral disk and facet joints. There are age appropriate degenerative changes within the intervertebral disks and facet joints in the lower lumbar region. Disk bulge at L4-L5 with mild central canal and neural foraminal stenosis. Degenerative facet disease at L4-S1. The paraspinal soft tissues and spinal canal are otherwise unremarkable in appearance. IMPRESSION: No evidence for acute traumatic injury of the lumbar spine. .
--- NOTE | 2017-09-19 17:47 | XRay Report ---
INDICATION: fever, intermittent cough PROCEDURE: CHEST 2-VIEWS UPRIGHT (PA & LAT) Encounter: Initial COMPARISON: Chest x-ray dated September 17, [address] thoracic spine from today FINDINGS: Patchy groundglass opacity in the left upper lobe is better seen on CT. Minimal dependent atelectasis. No pleural effusion or pneumothorax. Heart size and mediastinal contours are stable. Pulmonary vascularity is unchanged. Impression: Faint left upper lobe airspace disease suggesting a mild pneumonia .
--- NOTE | 2017-09-19 18:07 | XRay Report ---
Indication: fell, pain in bilateral hips PROCEDURE: XR pelvis w/ 2 view BI hip: Encounter: Initial Comparison: None Findings: There is no acute fracture, dislocation or malalignment identified. Bilateral total hip replacements appear intact. Heterotopic ossification adjacent to the left greater trochanter. Impression: No acute osseous abnormality. .
[2017-09-19] MEDS ORDERED: NS 1,000 ML IV SCH (18:15)
[2017-09-19] MEDS ORDERED: PNEUMOCOCCAL 13 VACCINE 0.5ml INJECTION IM ONE (19:07)
[2017-09-19] MEDS ORDERED: INFLUENZA VAC High Dose 2017-18 (Fluzone HD*) (>=65yo) 0.5ml IM ONE (19:07)
--- NOTE | 2017-09-19 20:18 | History and Physical ---
CHIEF COMPLAINT Fever. HISTORY OF PRESENT ILLNESS The patient is an 82-year-old female who was brought to [facility] ED today with chief complaint of shaking chills and fever. The patient fell twice - once yesterday and once today. With the one yesterday she lay on the floor for almost six hours. She was seen here in the ED 48 hours ago and at that time she was found to have UTI and was sent home on oral antibiotics. She has been taking that which has not helped. She thinks her fever is just getting worse. She is having diffuse joint pain pretty much all over from head to toe. She has severe headache. She said she is having shakiness and is also complaining of muscular pain throughout. In the ED today the patient's temperature was as high as 104. Lab did show a CPK of 707, slightly elevated liver function tests. Her UA was pretty consistent with urinary tract infection. For these reasons the patient was admitted to [facility] for inpatient treatment of UTI that has failed outpatient regimen as well as frequent falls. PAST MEDICAL HISTORY 1. Polymyalgia rheumatica. 2. Fibromyalgia. 3. Type 2 diabetes mellitus not needing insulin. 4. Peptic ulcer disease. 5. Anxiety disorder. 6. Depression. 7. Psoriasis. 8. Spinal stenosis. PAST SURGICAL HISTORY 1. Hip surgery x 2. 2. Knee surgery. 3. Cataract surgery. 4. Gallbladder surgery. 5. Tonsillectomy. 6. Hysterectomy. 7. Bladder repair. 8. Colonoscopy done recently. 9. EGD done recently by Dr. Ariel Morfin in August 2017. 10. Heart catheterization and stents in mid and proximal LAD on 01/02/[address] Clifton Garcia. FAMILY HISTORY Diabetes, heart disease, stomach problems, hypertension. SOCIAL HISTORY The patient is . She has two children. She was a former smoker - she hasn 't smoked for several years. REVIEW OF SYSTEMS No new findings except as in HPI. HOME MEDICATIONS: see chart. CODE STATUS: FULL CODE PHYSICAL EXAM GENERAL: The patient looks ill. She has a lot of shakiness throughout. VITAL SIGNS: In the emergency room temperature initially was 104.1. That was about 2:49. Now around 6:53 it is 101.2. Pulse is between 77-88. Respirations between 16-24. Blood pressure right now is 110/57. Oxygen saturation 92% on room air. HEENT: Unremarkable. NECK: Supple. LUNGS: Essentially clear to auscultation bilaterally. CARDIOVASCULAR: Regular rate and rhythm. No murmur. ABDOMEN: Soft. Only tenderness in the epigastric region which is not new. Bowel sounds are normoactive. EXTREMITIES: No cyanosis, clubbing or edema. NEUROLOGIC: Grossly intact. MUSCULOSKELETAL: Patient has multiple joint pains all over as well as muscular pain. Of course, she does have a fibromyalgia history and it is difficult to ascertain her myalgia at this time. LABORATORY CBC showed WBC 10.5. Hemoglobin 13.4. Sodium 139, potassium 4.2, chloride 110, CO2 20, creatinine 1.4 which is kind of her baseline, glucose 119, calcium 8.0. AST 47, ALT 60. CPK 707. Albumin 3.1. UA showed 1+ protein, 2+ blood. Positive nitrate, 2+ leukocyte esterase, 5-10 RBCs, 30-50 WBCs, 2+ bacteria. Urine culture was set up and is pending. IMAGING CT head is negative. Chest x-ray as per radiologist's interpretation shows faint left upper lobe air space disease suggesting mild pneumonia. CT cervical spine, CT lumbar spine, thoracic spine were taken and were negative - no fracture. X-ray of the hip and pelvis showed no fracture. EKG from 09/17/2017 basically shows no significant changes compared to 2016. 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 No evidence of acute findings at this time. ASSESSMENT 1. Sepsis ( from UTI and STEPHANIE pneumonia)......fever, tachypnea, 2. Urinary tract infection NOS failed outpatient mangement. 3. Left upper lobe pneumonia. 4. Fever and chills. 5. Generalized weakness. 6. Elevated CPK. 7. Generalized myalgia. 8. History of polymyalgia rheumatica. 9. History of fibromyalgia. 10. Type 2 diabetes mellitus not needing insulin. 11. Anxiety/depression. PLAN Admit patient to [facility] inpatient under the care of Dr. Phil Chao. The patient will be started on IV fluids as well as IV antibiotics. Follow up on electrolytes in the morning. Diabetic diet has been initiated. The patient needs Physical Therapy and Occupational Therapy consultation in the morning. Blood culture and urine culture are pending at time of dictation. Resume appropriate home medications. MTDD
[2017-09-19] MEDS: D5-1/2NS with KCL 20mEq 1,000 ML IV SCH (20:42)
[2017-09-19] MEDS: ACETAMINOPHEN 325 MG TABLET PO PRN (20:54)
[2017-09-19] MEDS: METHYLPREDNISOLONE SOD SUCC 40mg/ml INJECTION IVP SCH (20:55)
[2017-09-19] MEDS: CEFTRIAXONE 1 G in NS 100 ML IV SCH (20:55)
[2017-09-19] MEDS ORDERED: ONDANSETRON 4 MG/2 ML INJECTION IVP PRN (21:13)
[2017-09-19] MEDS: PRIMIDONE 50 MG TABLET PO SCH (23:44)
[2017-09-20] MEDS: D5-1/2NS with KCL 20mEq 1,000 ML IV SCH ×4 (06:38→22:07)
[2017-09-20] MEDS: CEFTRIAXONE 1 G in NS 100 ML IV SCH ×3 (08:25→15:05)
[2017-09-20] MEDS: METHYLPREDNISOLONE SOD SUCC 40mg/ml INJECTION IVP SCH ×2 (08:26→20:50)
[2017-09-20] MEDS: AZITHROMYCIN IV 500 MG in NS 250ml 250 ML IV SCH (09:56)
[2017-09-20] MEDS: SALINE FLUSH 10ml SYRINGE IVF PRN (09:57)
[2017-09-20] MEDS: ACETAMINOPHEN 325 MG TABLET PO PRN ×2 (10:05→20:55)
[2017-09-20 14:33] VITALS: BMI 24.9
[2017-09-20] MEDS: HYDROCODONE/APAP 5mg/325mg TABLET PO PRN (14:47)
--- NOTE | 2017-09-20 17:47 | Progress Note ---
DATE 09/20/2017 SUBJECTIVE Mrs. Lama is lying in bed in room 135 on the medical floor. She only complained of generalized pain which is consistent with a combination of polymyalgia rheumatica and fibromyalgia. In addition, she is currently treated for urinary tract infection. She is not having nausea or vomiting. She feels hot. Her temperature right now is about 97 degrees oral. PHYSICAL EXAM VITAL SIGNS (this morning): Temperature 96, pulse 54, respirations 20, blood pressure 126/66, oxygen saturation 97% on room air. GENERAL: She actually looks more comfortable today than yesterday. HEENT: * * NECK: Supple. LUNGS: Essentially clear to auscultation. Maybe decreased breath sounds at the bases. CARDIOVASCULAR: Regular rhythm. At this moment pulse is 74. ABDOMEN: Soft. No significant tenderness. Mild epigastric discomfort which is chronic. Hypoactive bowel sounds. EXTREMITIES: No cyanosis, clubbing or significant edema. NEUROLOGIC: Grossly intact. LABORATORY (this morning) Hemoglobin 10.8, down from 13.4 - probably hemodilutional. Platelet count went down to 125,000 from 156,000 - again probably hemodilutional. Creatinine has gone down from 1.4 to 1.3. BUN down from 34 to 27. Glucose 212. AST and ALT down at 42 and 53, respectively. CPK down to 606. Albumin 2.7. ASSESSMENT 1. Sepsis - combination from #2 and #3 below. 2. E. Coli-induced urinary tract infection. 3. Left upper lobe pneumonia. 4. E. coli bacteremia. 5. Fever and chills. 6. Generalized weakness. 7. Elevated CPK - improving. 8. Generalized myalgia, chronic. Maybe a little more acute flare right now. 9. History of polymyalgia rheumatica. 10. History of fibromyalgia. 11. Type 2 diabetes mellitus not needing insulin. 12. Anxiety/depression. 13. Essential tremor. Patient is on appropriate medications for this at this time. 14. Headache. PLAN I did discuss patient's clinical situation with Dr. Digna Fiore on the phone. We also talked about the dilemma of patient having E. coli in both urine culture and the bloodstream. The patient has multiple allergies to Levaquin, nitrofurantoin and penicillin. I have started the patient on Rocephin 1 g IV b.i.d. yesterday. Dr. Fiore recommended that we just cut that back to once a day - 1 g q24h. is sufficient according to her recommendation. We also added Zithromax earlier this morning for atypical bacteria due to evidence of pneumonia on chest x-ray. She believes that would be good coverage for now. Will wait for specificity from the culture. She will continue home medications. Will continue IV fluids. Will go ahead change IV fluids to 1/2 NS because she is diabetic and her sugar is creeping up a little bit. I will await the sensitivity for the blood culture and urine culture. Will add [place] to pain management because she has quite a lot of generalized pain. We do not have official consultation for Dr. Fiore. Basically, she said to just go ahead and do those recommendations we talked about on the phone. If we get into trouble then we will have her come in for official consultation at that time. She was very generous to give me some advice regarding this patient via telephone communication. I will be checking out in a few hours to the hospitalist on duty. I am going to check out this patient to them as well as my inpatients while I am gone. Outpatient coverage will be provided by [facility] on-call clinician. I will return back on 09/28/2017. If the patient is here, then I will resume care. If the patient is not here I will see her in the office one week from dismissal date. VARINDER
[2017-09-20] MEDS ORDERED: INFLUENZA VAC. INJ. ADMIN CHARGE INJ ONE (19:07)
[2017-09-20] MEDS ORDERED: PNEUMOCOCCAL VAC ADMIN CHARGE INJ ONE (19:07)
[2017-09-20] MEDS ORDERED: GABAPENTIN 100 MG CAPSULE PO SCH (21:00)
[2017-09-20] MEDS: PRIMIDONE 50 MG TABLET PO SCH (22:43)
[2017-09-20] MEDS: GABAPENTIN 400 MG CAPSULE PO SCH (22:43)
[2017-09-21] MEDS: D5-1/2NS with KCL 20mEq 1,000 ML IV SCH ×2 (04:44→11:15)
[2017-09-21] MEDS: HYDROCODONE/APAP 5mg/325mg TABLET PO PRN ×3 (04:52→20:31)
[2017-09-21] MEDS: METHYLPREDNISOLONE SOD SUCC 40mg/ml INJECTION IVP SCH ×2 (09:03→22:50)
[2017-09-21] MEDS: AZITHROMYCIN IV 500 MG in NS 250ml 250 ML IV SCH (09:12)
[2017-09-21] MEDS: CEFTRIAXONE 1 G in NS 100 ML IV SCH (13:19)
[2017-09-21] MEDS: INSULIN ASPART 100unit/ml INJECTION SQ PRN ×2 (16:43→20:32)
--- NOTE | 2017-09-21 16:43 | Progress Note ---
- Date 09/21/17 Subjective: Mrs. Lama describes a bad headache this morning rated 7/10 which is subsequently improved; aching in her anterior legs and hips which is chronic and attributed to fibromyalgia. She continues to have mild nausea without vomiting but has been able to eat meals. Her throat hurt this morning and has persisted. She describes mild dyspnea and minimal residual cough. She is dizzy and shaky at times. She complains of constipation but denied dysuria or difficulty voiding. She asked about multiple home medications which have not been resumed and reported that she used to have diabetes. Objective Vital signs: Temperature 98.2 F 09/21/17 15:00 Pulse Rate 59 L 09/21/17 15:00 Respiratory Rate 18 09/21/17 15:00 Blood Pressure 130/67 09/21/17 15:00 Pulse Oximetry 98 09/21/17 15:00 I/O 2857/1225 weight up 4 kg since admission EXAM General-NAD, alert HEENT-conjunctiva clear, conjugate gaze, oropharynx clear although membranes slightly dry Lungs-respirations nonlabored with good airflow, breath sounds are clear Cardiac-regular rhythm, S1 and S2 Abd-soft, mild generalized tenderness, bowel sounds normal Ext-without edema; legs hypersensitive to palpation Neuro-MAEW Psych-anxious - Height/Weight/BMI: Height 1.52 m Weight 59.3 kg Body Mass Index 24.9 Results - Labs CBC & Chem 7: 09/21/17 04:34 09/21/17 04:34 Labs: Segs 84, bands 6, lymphocytes 10 CPK 368, AST 44, ALT 59 Microbiology Results: Urine culture > 100,000 colonies Escherichia coli, resistant to ampicillin and Bactrim 1 of 2 blood cultures positive for Escherichia coli, second blood culture negative at 2 days. 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 Lama is clinically stable with ongoing arthralgias/myalgias which are chronic by report of PCP. Resume home medications including Carafate, Protonix, prednisone, Linzess, Myrbetriq, Plavix, tramadol, and Prozac per patient request or due to clinical stability. Indication for some medications unclear to me at present. Continue to hold metoprolol-patient reports she's only been taking 1/4 of a tablet in the evening. Bradycardic at times. No ongoing fever, white count within normal range with minor left shift. Continue to monitor. 1/2 blood cultures positive after 2 days. Repeat chest x-ray in a.m.-patient was not hypoxic on admission and has not required breathing treatments. Completes 3 days azithromycin 500 mg per day tomorrow. Discontinue methylprednisolone, resume oral prednisone at 20 mg daily and taper back to chronic dose of 5 mg daily over the next 3-5 days. Blood sugar 264-patient denies use of any diabetes medication at home; discontinued glucose infusion, IV steroids undoubtedly contributing to hyperglycemia. Accu-Cheks to be monitored routinely and corrective insulin ordered. A1c in a.m. PT assessment recommended retirement versus home depending on progress made during hospitalization. Discussed with case management and nursing will provide supplemental history; outpatient records reviewed, chest x-ray reviewed by myself. Sepsis Assessment - Evaluation Possible source: pulmonary, genitourinary Confirmed Suspected Infection: Yes SIRS Criteria: temperature > or equal to 100.4, RR > or equal to 20 Hospital Course Summary Disclaimer: The visit summary below is not to be considered part of the above Progress Note. Hospital Course: 09/21/17 Mrs. Lama is clinically stable with ongoing arthralgias/myalgias which are chronic by report of PCP. Resume home medications including Carafate, Protonix, prednisone, Linzess, Myrbetriq, Plavix, tramadol, and Prozac per patient request or due to clinical stability. Indication for some medications unclear to me at present. Continue to hold metoprolol-patient reports she's only been taking 1/4 of a tablet in the evening. Bradycardic at times. No ongoing fever, white count within normal range with minor left shift. Continue to monitor. 1/2 blood cultures positive after 2 days. Repeat chest x-ray in a.m.-patient was not hypoxic on admission and has not required breathing treatments. Completes 3 days azithromycin 500 mg per day tomorrow. Discontinue methylprednisolone, resume oral prednisone at 20 mg daily and taper back to chronic dose of 5 mg daily over the next 3-5 days. Blood sugar 264-patient denies use of any diabetes medication at home; discontinued glucose infusion, IV steroids undoubtedly contributing to hyperglycemia. Accu-Cheks to be monitored routinely and corrective insulin ordered. A1c in a.m. PT assessment recommended retirement versus home depending on progress made during hospitalization.
[2017-09-21] MEDS: SUCRALFATE 1 GM TABLET PO SCH ×2 (16:55→22:51)
[2017-09-21] MEDS ORDERED: FALL RISK - PHARMACY CONSULT MC ONE (20:55)
[2017-09-21] MEDS: GABAPENTIN 400 MG CAPSULE PO SCH (22:50)
[2017-09-21] MEDS: SENNA + DOCUSATE TABLET PO SCH (22:50)
[2017-09-21] MEDS: PRIMIDONE 50 MG TABLET PO SCH (22:51)
[2017-09-22] MEDS: ACETAMINOPHEN 325 MG TABLET PO PRN (00:12)
[2017-09-22] MEDS: PANTOPRAZOLE 40 MG TABLET PO SCH (05:54)
[2017-09-22] MEDS: HYDROCODONE/APAP 5mg/325mg TABLET PO PRN ×3 (05:54→18:56)
[2017-09-22] MEDS: SUCRALFATE 1 GM TABLET PO SCH ×4 (05:55→20:09)
[2017-09-22] MEDS: INSULIN ASPART 100unit/ml INJECTION SQ PRN ×3 (05:56→16:03)
[2017-09-22] MEDS ORDERED: PredniSONE 5 MG TABLET PO SCH (08:00)
[2017-09-22] MEDS: CLOPIDOGREL 75 MG TABLET PO SCH (08:30)
[2017-09-22] MEDS: MIRABEGRON 25mg TABLET PO SCH (08:30)
[2017-09-22] MEDS: POLYETHYL GLYCOL 3350 17gm PACKET PO SCH (08:30)
[2017-09-22] MEDS: FLUoxetine 20 MG CAPSULE PO SCH (08:30)
[2017-09-22] MEDS: PredniSONE 20 MG TABLET PO SCH (08:30)
[2017-09-22] MEDS: SENNA + DOCUSATE TABLET PO SCH ×2 (08:31→20:09)
[2017-09-22] MEDS: SALINE FLUSH 10ml SYRINGE IVF PRN ×3 (08:31→20:10)
[2017-09-22] MEDS ORDERED: LINACLOTIDE 145 MCG CAPSULE PO SCH (09:00)
[2017-09-22] MEDS ORDERED: AZITHROMYCIN 500 MG TABLET PO SCH (09:00)
[2017-09-22] MEDS: TRAMADOL 50 MG TABLET PO PRN ×2 (10:18→16:05)
--- NOTE | 2017-09-22 10:51 | Progress Note ---
- Date 09/22/17 Subjective: 82-year-old female who was brought to [facility] ED with chief complaint of shaking chills and fever. The patient fell twice - once on the day of admission and once the day prior. With the one the day prior, she was on the floor for almost six hours. She was seen here in the ED 2 days prior to admission and diagnosed with a UTI. She was sent home on antibiotics. She has been taking that which has not helped. She thinks her fever is just getting worse. She is having diffuse joint pain pretty much all over from head to toe. She has severe headaches. She reported shakiness and diffuse muscular pain. In the ED, her temperature was as high as 104. Lab showed a CPK of 707 and slightly elevated liver function tests. Her UA was pretty consistent with urinary tract infection. For these reasons the patient was admitted to [facility] for inpatient treatment of UTI that has failed outpatient regimen and her frequent falls. Today, she is up in the chair having just finished breakfast. She ate well. She reports her headache is much better this am. She complains of hurting in her legs, hips, back and neck. She denies nausea this am. No vomiting. Her throat is still sore. She is getting up to the bathroom and she reports walking with PT yesterday. All other 12 pt ROS negative. Her BP are reasonable. She is on RA. Her lab this am was hemolyzed so likely the K is not accurate. Will check in am. Her CXR this am is stable. Objective Vital signs: Temperature 96.4 F L 09/22/17 07:30 Pulse Rate 51 L 09/22/17 07:30 Respiratory Rate 16 09/22/17 07:30 Blood Pressure 176/80 H 09/22/17 07:30 Pulse Oximetry 96 09/22/17 07:30 Height/Weight/BMI: Height 1.52 m Weight 59.8 kg Body Mass Index 24.9 Comments: Gen: alert and oriented. NAD Skin: warm and dry HEENT: NC/AT PERRL, EOMI, Sclera, lids and conjunctiva wnl, MMM, OP clear Lungs: clear, No rales, rhonchi, wheezes. CV: regular. No murmur, rub or gallop Abd: soft. NT/ND, +BS MS: No edema. Lower ext tender to touch Neuro: No focal deficit Results - Labs CBC & Chem 7: 09/22/17 04:00 09/22/17 04:00 Labs: 09/21/17 09/21/17 09/21/17 04:34 16:12 20:08 Turbidity < 20 Sodium 136 Potassium 4.8 Chloride 105 Carbon Dioxide 21 L Anion Gap 10 BUN 26.0 H Creatinine 1.1 D GFR Calculation 48 BUN/Creatinine Ratio 24 Glucose 254 H Glucometer 264 275 Hemoglobin A1c Calculated Osmolality 276 Calcium 8.4 D Phosphorus Magnesium Total Bilirubin 0.30 Icterus Index < 2 AST 44 H ALT 59 H Alkaline Phosphatase 71 Creatine Kinase 368 H Total Protein 6.0 L Albumin 3.1 L Globulin 2.9 Albumin/Globulin Ratio 1.1 Specimen Hemolysis < 15 09/22/17 09/22/17 04:00 05:38 Turbidity < 20 Sodium 134 Potassium 5.7 H D Chloride 107 Carbon Dioxide 21 L Anion Gap 6 BUN 25.0 H Creatinine 1.0 GFR Calculation 53 BUN/Creatinine Ratio 25 Glucose 162 H Glucometer 166 Hemoglobin A1c 5.8 L Calculated Osmolality 266 Calcium 8.7 Phosphorus 2.4 L Magnesium 2.1 Total Bilirubin Icterus Index < 2 AST ALT Alkaline Phosphatase Creatine Kinase Total Protein Albumin 3.0 L Globulin Albumin/Globulin Ratio Specimen Hemolysis 51 H Assessment and Plan (1) Bacteremia, escherichia coli Current visit: Yes Status: Acute (2) Sepsis Problem details: UTI/pulmonary sources Current visit: Yes Status: Acute (3) Ambulatory dysfunction 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 Sepsis -E. coli UTI with failed outpt therapy -E. coli bacteremia, 1/2 Bl cx + E.coli -On Rocephin 2. Possible left upper lobe infiltrate -CXR stable. -Continue resp therapy -Azithromycin through the weekend -WBC up slightly, likely due to steroids 3. Ambulatory dysfunction with falls -CT head, C-spine, T-spine, L-spine negative on admission Elevated CPK-minor/resolving 4. Generalized weakness -PT 5. CKD-stage III -Creatinine normal today 6. Chronic pain issues -PMR/fibromyalgia -Tramadol -On prednisone 5mg daily routinely at home -placed on methylprednisolone initially for illness, started po taper yesterday 7. Diabetes mellitus -diet controlled at home -Elevated BS due to steroids. Better now that she is on lower dose steroids -SSI 8. Depression/anxiety disorder -On Prozac 9. Dyspepsia -recent negative EGD per patient report -On ppi and carafate 10. Chronic headaches -Better this am. 11. HTN -Metoprolol 12.5 mg BID at home held due to bradycardia -BP elevated into 170s this am. Start low dose Norvasc 12. Essential tremor -Mysoline 13. Constipation/IBS -Linzess 14. Prophylaxis -protonix -SCDS 15. Dispo, likely will need fdc on discharge Hospital Course Summary Disclaimer: The visit summary below is not to be considered part of the above Progress Note. Hospital Course: 09/21/17 Mrs. Lama is clinically stable with ongoing arthralgias/myalgias which are chronic by report of PCP. Resume home medications including Carafate, Protonix, prednisone, Linzess, Myrbetriq, Plavix, tramadol, and Prozac per patient request or due to clinical stability. Indication for some medications unclear to me at present. Continue to hold metoprolol-patient reports she's only been taking 1/4 of a tablet in the evening. Bradycardic at times. No ongoing fever, white count within normal range with minor left shift. Continue to monitor. 1/2 blood cultures positive after 2 days. Repeat chest x-ray in a.m.-patient was not hypoxic on admission and has not required breathing treatments. Completes 3 days azithromycin 500 mg per day tomorrow. Discontinue methylprednisolone, resume oral prednisone at 20 mg daily and taper back to chronic dose of 5 mg daily over the next 3-5 days. Blood sugar 264-patient denies use of any diabetes medication at home; discontinued glucose infusion, IV steroids undoubtedly contributing to hyperglycemia. Accu-Cheks to be monitored routinely and corrective insulin ordered. A1c in a.m. PT assessment recommended fdc versus home depending on progress made during hospitalization.
[2017-09-22] MEDS: AMLODIPINE 2.5 MG TABLET PO SCH (11:32)
[2017-09-22] MEDS: NS FLUSH BAG 500ml IV PRN (13:21)
[2017-09-22] MEDS: CEFTRIAXONE 1 G in NS 100 ML IV SCH (13:21)
[2017-09-22] MEDS: PRIMIDONE 50 MG TABLET PO SCH (20:08)
[2017-09-22] MEDS: GABAPENTIN 400 MG CAPSULE PO SCH (20:09)
[2017-09-23] MEDS: HYDROCODONE/APAP 5mg/325mg TABLET PO PRN ×2 (01:41→23:55)
[2017-09-23] MEDS: LINACLOTIDE 145 MCG CAPSULE PO SCH (06:39)
[2017-09-23] MEDS: PANTOPRAZOLE 40 MG TABLET PO SCH (06:39)
[2017-09-23] MEDS: SUCRALFATE 1 GM TABLET PO SCH ×4 (06:39→23:55)
[2017-09-23] MEDS: MIRABEGRON 25mg TABLET PO SCH (08:44)
[2017-09-23] MEDS: FLUoxetine 20 MG CAPSULE PO SCH (08:44)
[2017-09-23] MEDS: SENNA + DOCUSATE TABLET PO SCH ×2 (08:45→23:56)
[2017-09-23] MEDS: AMLODIPINE 2.5 MG TABLET PO SCH (08:45)
[2017-09-23] MEDS: POLYETHYL GLYCOL 3350 17gm PACKET PO SCH (08:45)
[2017-09-23] MEDS: CLOPIDOGREL 75 MG TABLET PO SCH (08:45)
[2017-09-23] MEDS: PredniSONE 20 MG TABLET PO SCH (08:45)
[2017-09-23] MEDS: TRAMADOL 50 MG TABLET PO PRN (08:45)
--- NOTE | 2017-09-23 08:51 | Progress Note ---
- Date 09/23/17 Subjective: 82-year-old female who was brought to [facility] ED with chief complaint of shaking chills and fever. The patient fell twice - once on the day of admission and once the day prior. With the one the day prior, she was on the floor for almost six hours. She was seen here in the ED 2 days prior to admission and diagnosed with a UTI. She was sent home on antibiotics. She has been taking that which has not helped. She thinks her fever is just getting worse. She is having diffuse joint pain pretty much all over from head to toe. She has severe headaches. She reported shakiness and diffuse muscular pain. In the ED, her temperature was as high as 104. Lab showed a CPK of 707 and slightly elevated liver function tests. Her UA was pretty consistent with urinary tract infection. For these reasons the patient was admitted to [facility] for inpatient treatment of UTI that has failed outpatient regimen and her frequent falls. Today, she just returned from the BR. She is up in the chair. She states she did not sleep very well so she is a bit tired. Her JAIVER is still there but it is mild as it was yesterday. She continues to complain of leg and hip pain. She denies nausea this am. No vomiting. Her throat is still sore but better. She ambulated in the hallway yesterday. Her BP are a little high, Norvasc 2.5 mg started today, may need to increase. She was on BBL at home but she is bradycardic at times so that probably isn't the best choice. She is on RA. Will dc azithromycin after todays dose. K a little high. Will make sure she is on a low K diet. She was on Lasix 40mg BID at home. SHe has gained 3kg since admission. She has trace edema in the LE. She may benefit from low dose daily. No echo found in records to know of EF so I am unsure of the reason for Lasix. WBC up again today. No fevers. Objective Vital signs: Temperature 97.5 F 09/23/17 07:00 Pulse Rate 55 L 09/23/17 07:00 Respiratory Rate 16 09/23/17 07:00 Blood Pressure 156/72 H 09/23/17 07:00 Pulse Oximetry 100 09/23/17 07:00 Height/Weight/BMI: Height 1.52 m Weight 59.1 kg Body Mass Index 24.9 Comments: Gen: alert and oriented. NAD Skin: warm and dry HEENT: NC/AT PERRL, EOMI, Sclera, lids and conjunctiva wnl, MMM, OP clear Neck: supple. No JVD. Carotids 2+ without bruits Lungs: clear, No rales, rhonchi, wheezes. CV: regular. No murmur, rub or gallop Abd: soft. NT/ND, +BS MS: Trace LE edema. 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 Sepsis -E. coli UTI with failed outpt therapy -E. coli bacteremia, 1/2 Bl cx + E.coli -On Rocephin 2. Possible left upper lobe infiltrate -CXR stable. -Continue resp therapy -Azithromycin last dose today -WBC up slightly, likely due to steroids(?)-continue to trend 3. Ambulatory dysfunction with falls -CT head, C-spine, T-spine, L-spine negative on admission -Elevated CPK-minor/resolving -PT 4. Generalized weakness -PT 5. CKD-stage III -Creatinine normal 6. Chronic pain issues -PMR/fibromyalgia -Tramadol -On prednisone 5mg daily routinely at home -placed on methylprednisolone initially for illness, started po taper 09/22/17 with 20mg daily 7. Diabetes mellitus -diet controlled at home -Elevated BS due to steroids. Better now that she is on lower dose steroids -SSI 8. Depression/anxiety disorder -On Prozac 9. Dyspepsia -recent negative EGD per patient report -On ppi and carafate 10. Chronic headaches -Better this am. 11. HTN -Metoprolol 12.5 mg BID at home held due to bradycardia -BP elevated into 170s this am. Start low dose Norvasc 12. Essential tremor -Mysoline 13. Constipation/IBS -Linzess 14. Prophylaxis -protonix -SCDS 15. Dispo, likely will need long term on discharge Hospital Course Summary Disclaimer: The visit summary below is not to be considered part of the above Progress Note. Hospital Course: 09/21/17 Mrs. Lama is clinically stable with ongoing arthralgias/myalgias which are chronic by report of PCP. Resume home medications including Carafate, Protonix, prednisone, Linzess, Myrbetriq, Plavix, tramadol, and Prozac per patient request or due to clinical stability. Indication for some medications unclear to me at present. Continue to hold metoprolol-patient reports she's only been taking 1/4 of a tablet in the evening. Bradycardic at times. No ongoing fever, white count within normal range with minor left shift. Continue to monitor. 1/2 blood cultures positive after 2 days. Repeat chest x-ray in a.m.-patient was not hypoxic on admission and has not required breathing treatments. Completes 3 days azithromycin 500 mg per day tomorrow. Discontinue methylprednisolone, resume oral prednisone at 20 mg daily and taper back to chronic dose of 5 mg daily over the next 3-5 days. Blood sugar 264-patient denies use of any diabetes medication at home; discontinued glucose infusion, IV steroids undoubtedly contributing to hyperglycemia. Accu-Cheks to be monitored routinely and corrective insulin ordered. A1c in a.m. PT assessment recommended long term versus home depending on progress made during hospitalization.
--- NOTE | 2017-09-23 10:18 | XRay Report ---
INDICATION: possible pneumonia per prior x-ray PROCEDURE: CHEST 2-VIEWS UPRIGHT (PA & LAT) Encounter: Initial COMPARISON: September 19, 2017 FINDINGS: The lungs are now clear without evidence of focal abnormal airspace opacity. New trace left effusion. No pneumothorax. The heart size, mediastinal contours and pulmonary vascularity are within normal limits. There is no significant skeletal abnormality. IMPRESSION: Clearance of the left upper lobe opacity. Trace left effusion. .
[2017-09-23] MEDS: CEFTRIAXONE 1 G in NS 100 ML IV SCH (13:08)
[2017-09-23] MEDS: INSULIN ASPART 100unit/ml INJECTION SQ PRN ×2 (17:37→20:56)
[2017-09-23] MEDS: PRIMIDONE 50 MG TABLET PO SCH (23:54)
[2017-09-23] MEDS: GABAPENTIN 400 MG CAPSULE PO SCH (23:56)
[2017-09-24] MEDS: ACETAMINOPHEN 325 MG TABLET PO PRN (03:54)
[2017-09-24] MEDS: TRAMADOL 50 MG TABLET PO PRN ×2 (03:55→10:52)
[2017-09-24] MEDS: PANTOPRAZOLE 40 MG TABLET PO SCH (06:59)
[2017-09-24] MEDS: SUCRALFATE 1 GM TABLET PO SCH ×4 (07:00→23:36)
[2017-09-24] MEDS: POLYETHYL GLYCOL 3350 17gm PACKET PO SCH (08:32)
[2017-09-24] MEDS: MIRABEGRON 25mg TABLET PO SCH (08:32)
[2017-09-24] MEDS: LINACLOTIDE 145 MCG CAPSULE PO SCH (08:32)
[2017-09-24] MEDS: SENNA + DOCUSATE TABLET PO SCH ×2 (08:33→23:31)
[2017-09-24] MEDS: FLUoxetine 20 MG CAPSULE PO SCH (08:33)
[2017-09-24] MEDS: CLOPIDOGREL 75 MG TABLET PO SCH (08:33)
[2017-09-24] MEDS: AMLODIPINE 2.5 MG TABLET PO SCH (08:33)
[2017-09-24] MEDS: PredniSONE 20 MG TABLET PO SCH (08:33)
--- NOTE | 2017-09-24 11:25 | Progress Note ---
- Date 09/24/17 Subjective: F/U: Ecoli septicemia Coverage for Dr Chao Feels tired and weak. Not much get up and go. Did walk with nursing the morning to help strength and has been up in chair most of morning. Notes lower ab pain- did have stool. Eating okay. No nausea. Breathing well-not SOA or congested. No f/c. Objective Vital signs: Temperature 96.1 F L 09/24/17 07:56 Pulse Rate 60 09/24/17 07:56 Respiratory Rate 16 09/24/17 07:56 Blood Pressure 157/71 H 09/24/17 07:56 Pulse Oximetry 92 09/24/17 07:56 Height/Weight/BMI: Height 1.52 m Weight 57.7 kg Body Mass Index 24.9 - Constitutional Present: well nourished, well developed, average body habitus, cooperative - Routine HEENT Exam Head: Present: normocephalic, atraumatic Eye: Present: EOMI, PERRL ENT: Present: mucous membranes dry - Routine Respiratory Exam Present: CTA bilaterally. Absent: rales, respiratory distress, rhonchi, wheezes , crackles - Routine Cardiovascular Exam Present: RRR, no murmur - Routine Abdominal Exam Present: soft, normoactive bowel sounds, non distended, non tender. Absent: guarding - Routine Extremities Exam Present: edema (+1 BLE ). Absent: cyanosis, clubbing - Routine Musculoskeletal Exam Musculoskeletal: Present: no clubbing or cyanosis, normal strength - Routine Skin Exam Present: dry, warm - Routine Neurological Exam Present: alert, CN II-XII intact, moving all extremities, vision grossly intact , hearing grossly intact, normal speech. Absent: motor deficit, altered mental status - Routine Psychiatric Exam Present: normal affect, normal thought process, cooperative. 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 Decrease Prednisone to 10mg - home dose 5mg. Start Lovenox for DVT prevention. Encourage ambulation and therapy to help strength. Discussed about possibility of correction to help increase functional status prior to return home. Patient agreeable - discussed with CM to look into skilled care. Recheck CBC in am - likely increased WBC secondary to steroids. Recheck BMP in am due to Hyperkalemia (Hemolysis noted). Case discussed with CM. Time spent with patient care 35 minutes. Spent time with patient discussing benefits and importance of [facility]. DVT Prophylaxis: Lovenox Resuscitation Status: Full Code - Time spent with patient Time with patient PN: 35 minutes Hospital Course Summary Disclaimer: The visit summary below is not to be considered part of the above Progress Note. Hospital Course: 09/19/17 Admit patient to [facility] inpatient under the care of Dr. Phil Chao. The patient will be started on IV fluids as well as IV antibiotics. Follow up on electrolytes in the morning. Diabetic diet has been initiated. The patient needs Physical Therapy and Occupational Therapy consultation in the morning. Blood culture and urine culture are pending at time of dictation. Resume appropriate home medications. 09/20/17 I did discuss patient's clinical situation with Dr. Digna Fiore on the phone. We also talked about the dilemma of patient having E. coli in both urine culture and the bloodstream. The patient has multiple allergies to Levaquin, nitrofurantoin and penicillin. I have started the patient on Rocephin 1 g IV b.i.d. yesterday. Dr. Fiore recommended that we just cut that back to once a day - 1 g q24h. is sufficient according to her recommendation. We also added Zithromax earlier this morning for atypical bacteria due to evidence of pneumonia on chest x-ray. She believes that would be good coverage for now. Will wait for specificity from the culture. She will continue home medications. Will continue IV fluids. Will go ahead change IV fluids to 1/2 NS because she is diabetic and her sugar is creeping up a little bit. I will await the sensitivity for the blood culture and urine culture. Will add [place] to pain management because she has quite a lot of generalized pain. We do not have official consultation for Dr. iFore. Basically, she said to just go ahead and do those recommendations we talked about on the phone. If we get into trouble then we will have her come in for official consultation at that time. She was very generous to give me some advice regarding this patient via telephone communication. 09/21/17 Mrs. Lama is clinically stable with ongoing arthralgias/myalgias which are chronic by report of PCP. Resume home medications including Carafate, Protonix, prednisone, Linzess, Myrbetriq, Plavix, tramadol, and Prozac per patient request or due to clinical stability. Indication for some medications unclear to me at present. Continue to hold metoprolol-patient reports she's only been taking 1/4 of a tablet in the evening. Bradycardic at times. No ongoing fever, white count within normal range with minor left shift. Continue to monitor. 1/2 blood cultures positive after 2 days. Repeat chest x-ray in a.m.-patient was not hypoxic on admission and has not required breathing treatments. Completes 3 days azithromycin 500 mg per day tomorrow. Discontinue methylprednisolone, resume oral prednisone at 20 mg daily and taper back to chronic dose of 5 mg daily over the next 3-5 days. Blood sugar 264-patient denies use of any diabetes medication at home; discontinued glucose infusion, IV steroids undoubtedly contributing to hyperglycemia. Accu-Cheks to be monitored routinely and corrective insulin ordered. A1c in a.m. PT assessment recommended correction versus home depending on progress made during hospitalization. 09/22/17 Azithromycin through the weekend Placed on methylprednisolone initially for illness, started po taper yesterday. Elevated BS due to steroids. Better now that she is on lower dose steroids. Metoprolol 12.5 mg BID at home held due to bradycardia. BP elevated into 170s this am. Start low dose Norvasc. 09/23/17 Last day for azithromycin. Continue Rocephin. 09/24/17 Continue Rocephin for coverage of E coli - Day #6. Decrease Prednisone to 10mg - home dose 5mg. Start Lovenox for DVT prevention. Encourage ambulation and therapy to help strength. Discussed about possibility of correction to help increase functional status prior to return home. Patient agreeable - discussed with CM to look into skilled care.
[2017-09-24] MEDS: ENOXAPARIN 40 MG/0.4 ML INJECTION SQ SCH (12:54)
[2017-09-24] MEDS: CEFTRIAXONE 1 G in NS 100 ML IV SCH (12:55)
[2017-09-24] MEDS: INSULIN ASPART 100unit/ml INJECTION SQ PRN ×2 (16:37→20:25)
[2017-09-24] MEDS: PRIMIDONE 50 MG TABLET PO SCH (23:30)
[2017-09-24] MEDS: GABAPENTIN 400 MG CAPSULE PO SCH (23:32)
[2017-09-24] MEDS: HYDROCODONE/APAP 5mg/325mg TABLET PO PRN (23:32)
[2017-09-24] MEDS: SALINE FLUSH 10ml SYRINGE IVF PRN (23:44)
[2017-09-25] MEDS: TRAMADOL 50 MG TABLET PO PRN ×2 (03:38→11:18)
[2017-09-25] MEDS: SUCRALFATE 1 GM TABLET PO SCH ×2 (05:44→11:19)
[2017-09-25] MEDS: PANTOPRAZOLE 40 MG TABLET PO SCH (05:44)
[2017-09-25 07:37] VITALS: BP 171/81; PULSE 60; RESP 18; TEMP 97; O2SAT 100
[2017-09-25] MEDS ORDERED: PredniSONE 10 MG TABLET PO SCH (08:00)
[2017-09-25] MEDS: FLUoxetine 20 MG CAPSULE PO SCH (08:10)
[2017-09-25] MEDS: SENNA + DOCUSATE TABLET PO SCH (08:10)
[2017-09-25] MEDS: MIRABEGRON 25mg TABLET PO SCH (08:10)
[2017-09-25] MEDS: CLOPIDOGREL 75 MG TABLET PO SCH (08:11)
[2017-09-25] MEDS: AMLODIPINE 2.5 MG TABLET PO SCH (08:11)
[2017-09-25] MEDS: LINACLOTIDE 145 MCG CAPSULE PO SCH (08:11)
[2017-09-25] MEDS: POLYETHYL GLYCOL 3350 17gm PACKET PO SCH (08:11)
[2017-09-25] MEDS: ENOXAPARIN 40 MG/0.4 ML INJECTION SQ SCH (08:11)
[2017-09-25] MEDS: SALINE FLUSH 10ml SYRINGE IVF PRN ×2 (08:12→11:19)
[2017-09-25] MEDS ORDERED: CEFTRIAXONE 1 G in NS 100 ML IV ONE (10:49)
[2017-09-25] MEDS: NS FLUSH BAG 500ml IV PRN (11:19)
--- NOTE | 2017-09-25 11:21 | Progress Note ---
- Date 09/25/17 Subjective: F/U: Ecoli septicemia Coverage for Dr Chao Doing okay this morning. Legs feel tired and weak-but has been up walking this am. Pass large stool. No nausea. Eating well. Breathing well. No f/c. Objective Vital signs: Temperature 97 F 09/25/17 07:34 Pulse Rate 60 09/25/17 07:34 Respiratory Rate 18 09/25/17 07:34 Blood Pressure 171/81 H 09/25/17 07:34 Pulse Oximetry 100 09/25/17 07:34 Height/Weight/BMI: Height 1.52 m Weight 56.7 kg Body Mass Index 24.9 - Constitutional Present: no acute distress, well nourished, well developed, average body habitus , cooperative - Routine HEENT Exam Head: Present: normocephalic, atraumatic Eye: Present: EOMI, PERRL ENT: Present: mucous membranes moist - Routine Respiratory Exam Present: CTA bilaterally. Absent: respiratory distress, rhonchi, wheezes, crackles - Routine Cardiovascular Exam Present: RRR, no murmur - Routine Abdominal Exam Present: soft, non distended, non tender. Absent: guarding - Routine Extremities Exam Present: pulses intact. Absent: cyanosis, clubbing - Routine Musculoskeletal Exam Musculoskeletal: Present: no clubbing or cyanosis, normal strength - Routine Skin Exam Present: dry, warm - Routine Neurological Exam Present: alert, CN II-XII intact, moving all extremities, vision grossly intact , hearing grossly intact, normal speech. Absent: motor deficit, altered mental status - Routine Psychiatric Exam Present: normal affect, normal thought process, cooperative, good insight, good judgment. Absent: anxious, agitated Results - Labs CBC & Chem 7: 09/25/17 04:03 09/25/17 04:03 Assessment and Plan (1) Sepsis Problem details: UTI/pulmonary sources Current visit: Yes Status: Acute (2) Bacteremia, escherichia coli Current visit: Yes Status: Acute (3) Ambulatory dysfunction Problem details: falls x 2 [employer] Current visit: Yes Status: Acute Assessment and Plan: Assessment Sepsis/Escherichia coli bacteremia Escherichia coli UTI-failed outpatient therapy Possible left upper lobe infiltrate Ambulatory dysfunction with falls-CT head, C-spine, T-spine, L-spine negative on admission Elevated CPK-minor/resolving Generalized weakness CKD-stage III PMR/fibromyalgia Diabetes mellitus, diet controlled Depression/anxiety disorder Dyspepsia-recent negative EGD per patient report Chronic headaches Essential tremor Plan Day 7 of Rocephin - can discontinue. Will continue oral cephalexin 500mg TID for 3 more days. Continue Prednisone 10mg daily for 4 more days, then may decrease to 5mg (her chronic dose). Arrangements made for residential at [facility] - medically stable for discharge. F/U with Dr Chao at [facility]. See orders for details. Case discussed with CM and Dr Chao . Time spent with patient care and discharger greater than 30 minutes. DVT Prophylaxis: Lovenox Resuscitation Status: Full Code - Time spent with patient Time with patient PN: 30 minutes Hospital Course Summary Disclaimer: The visit summary below is not to be considered part of the above Progress Note. Hospital Course: 09/19/17 Admit patient to [facility] inpatient under the care of Dr. Phil Chao. The patient will be started on IV fluids as well as IV antibiotics. Follow up on electrolytes in the morning. Diabetic diet has been initiated. The patient needs Physical Therapy and Occupational Therapy consultation in the morning. Blood culture and urine culture are pending at time of dictation. Resume appropriate home medications. 09/20/17 I did discuss patient's clinical situation with Dr. Digna Fiore on the phone. We also talked about the dilemma of patient having E. coli in both urine culture and the bloodstream. The patient has multiple allergies to Levaquin, nitrofurantoin and penicillin. I have started the patient on Rocephin 1 g IV b.i.d. yesterday. Dr. Fiore recommended that we just cut that back to once a day - 1 g q24h. is sufficient according to her recommendation. We also added Zithromax earlier this morning for atypical bacteria due to evidence of pneumonia on chest x-ray. She believes that would be good coverage for now. Will wait for specificity from the culture. She will continue home medications. Will continue IV fluids. Will go ahead change IV fluids to 1/2 NS because she is diabetic and her sugar is creeping up a little bit. I will await the sensitivity for the blood culture and urine culture. Will add [place] to pain management because she has quite a lot of generalized pain. We do not have official consultation for Dr. Fiore. Basically, she said to just go ahead and do those recommendations we talked about on the phone. If we get into trouble then we will have her come in for official consultation at that time. She was very generous to give me some advice regarding this patient via telephone communication. 09/21/17 Mrs. Lama is clinically stable with ongoing arthralgias/myalgias which are chronic by report of PCP. Resume home medications including Carafate, Protonix, prednisone, Linzess, Myrbetriq, Plavix, tramadol, and Prozac per patient request or due to clinical stability. Indication for some medications unclear to me at present. Continue to hold metoprolol-patient reports she's only been taking 1/4 of a tablet in the evening. Bradycardic at times. No ongoing fever, white count within normal range with minor left shift. Continue to monitor. 1/2 blood cultures positive after 2 days. Repeat chest x-ray in a.m.-patient was not hypoxic on admission and has not required breathing treatments. Completes 3 days azithromycin 500 mg per day tomorrow. Discontinue methylprednisolone, resume oral prednisone at 20 mg daily and taper back to chronic dose of 5 mg daily over the next 3-5 days. Blood sugar 264-patient denies use of any diabetes medication at home; discontinued glucose infusion, IV steroids undoubtedly contributing to hyperglycemia. Accu-Cheks to be monitored routinely and corrective insulin ordered. A1c in a.m. PT assessment recommended residential versus home depending on progress made during hospitalization. 09/22/17 Azithromycin through the weekend Placed on methylprednisolone initially for illness, started po taper yesterday. Elevated BS due to steroids. Better now that she is on lower dose steroids. Metoprolol 12.5 mg BID at home held due to bradycardia. BP elevated into 170s this am. Start low dose Norvasc. 09/23/17 Last day for azithromycin. Continue Rocephin. 09/24/17 Continue Rocephin for coverage of E coli - Day #6. Decrease Prednisone to 10mg - home dose 5mg. Start Lovenox for DVT prevention. Encourage ambulation and therapy to help strength. Discussed about possibility of residential to help increase functional status prior to return home. Patient agreeable - discussed with CM to look into skilled care. 09/25/17 Day 7 of Rocephin - can discontinue. Will continue oral cephalexin 500mg TID for 3 more days. Continue Prednisone 10mg daily for 4 more days, then may decrease to 5mg (her chronic dose). Arrangements made for residential at [facility] - medically stable for discharge. F/U with Dr Chao at [facility]. See orders for details.
--- NOTE | 2017-09-25 11:28 | Extended Care Facility Orders ---
Admission Orders Admit to:: Detention Allergies/Adverse Reactions: Allergies codeine Allergy (Verified 09/19/17 14:43) grass pollen Allergy (Verified 09/19/17 14:43) PT UNSURE levofloxacin [From Levaquin] Allergy (Verified 09/19/17 21:22) morphine Allergy (Verified 09/19/17 14:43) nitrofurantoin Allergy (Verified 09/19/17 14:43) Penicillins Allergy (Verified 09/19/17 14:43) Admitting Diagnosis: UTI, Failed outpatient treatment - E coli septicemia resolved Admitting Physician: Phil Chao MD Attending Physician: Phil Chao MD Code Status: Full Code Anticiapted Length of Stay: 30 days or less Rehab Potential: fair Rehab Prognosis: fair Diet: No added salt, no concentrated sweets May use Facility Protocol or Standing Orders: Yes May have flu vaccine: Yes Evaluations/Treatment: PT, OT Detention Certification: I certify that SNF services are required to be given on an Inpatient basis because of the patients need for assisted care on a continuing basis for the condition(s) for which he/she received inpatient hospital services prior to his/her transfer to the SNF. SNF inpatient care is necessary for the following reasons Indication for Detention: Med Admininistration, Diabetic Education, Other (Skilled PT/OT to maximize functional status ) - Additional Information In Event of Arrest: Start CPR,call 911,send patient to the ER Resident is Aware of Diagnosis: Yes Referrals: Phil Chao MD [Family Provider] - (Follow while on skilled care. ) Additional Orders: CBC in 1 week - Dx: Leukocytosis. Start Cephalexin 500mg orally TID on 09/26/17 - had dose of Rocephin on 09/25/17. Prednisone 10mg with breakfast for 4 days, then decrease to 5mg with breakfast on 09/30/17. Accuchecks ac meals, q hs and as needed.
--- NOTE | 2017-09-25 11:49 | Discharge Summary ---
Discharge Information Date of admission: 09/19/17 18:06 Anticipated date of discharge: 09/25/17 Attending Physician: Phil Chao MD Primary care physician: Phil Chao MD Consults: PT/OT - Discharge Diagnosis (1) Sepsis Status: Acute (2) Bacteremia, escherichia coli Status: Acute (3) Ambulatory dysfunction Status: Acute Discharge diagnosis Sepsis/Escherichia coli bacteremia Associated conditions and complications Escherichia coli UTI-failed outpatient therapy Possible left upper lobe infiltrate Ambulatory dysfunction with falls-CT head, C-spine, T-spine, L-spine negative on admission Elevated CPK-minor/resolving Generalized weakness CKD-stage III PMR/fibromyalgia Diabetes mellitus, diet controlled Depression/anxiety disorder Dyspepsia-recent negative EGD per patient report Chronic headaches Essential tremor - Laboratory Labs: Admit Lab 09/19/17 15:28 WBC 10.5 Hgb 13.4 Hct 40.8 MCV 97.6 Plt Count 156 Neutrophils % (Manual) 88.0 H Band Neutrophils % 1.0 Lymphocytes % (Manual) 8.0 L Monocytes % (Manual) 3.0 Admit Lab 09/19/17 09/19/17 16:01 16:01 Sodium 139 Potassium 4.2 Chloride 110 H Carbon Dioxide 20 L Anion Gap 9 BUN 34.0 H Creatinine 1.4 H D GFR Calculation 36 BUN/Creatinine Ratio 24 Glucose 119 H Calculated Osmolality 277 Calcium 8.0 L D Total Bilirubin 1.00 AST 47 H ALT 60 H Alkaline Phosphatase 70 Creatine Kinase 707 H Total Protein 5.9 L Albumin 3.1 L Globulin 2.8 Albumin/Globulin Ratio 1.1 Plasma Lactate 1.2 Procalcitonin 1.93 Laboratory Tests 09/22/17 04:00 Hemoglobin A1c 5.8 L 09/25/17 04:03 09/25/17 04:03 - Radiology Radiology: Date of Exam: 09/19/17 PROCEDURE: CT cervical spine wo con FINDINGS: The alignment of the cervical spine is straightened with degenerative grade 1 anterolisthesis of C3 on C4 and T1 on T2. Multilevel degenerative changes are present. There is no evidence of acute fracture or subluxation of the cervical spine. The facet joints are well aligned with preservation of the intervertebral disk and facet joints. The atlantoaxial articulation, dens, and upper cervical spine demonstrate no subluxation. Small area of groundglass opacity in the left apex could be infectious or inflammatory. IMPRESSION: No acute traumatic abnormality of the cervical spine. Date of Exam: 09/19/17 PROCEDURE: XR pelvis w/ 2 view BI hip Findings: There is no acute fracture, dislocation or malalignment identified. Bilateral total hip replacements appear intact. Heterotopic ossification adjacent to the left greater trochanter. Impression: No acute osseous abnormality. Date of Exam: 09/19/17 PROCEDURE: CT lumbar spine wo con FINDINGS: The alignment of the lumbar spine is normal for the patient's age. No fractures or traumatic subluxation of the lumbar spine is evident. The facet joints are well aligned with preservation of the intervertebral disk and facet joints. There are age appropriate degenerative changes within the intervertebral disks and facet joints in the lower lumbar region. Disk bulge at L4-L5 with mild central canal and neural foraminal stenosis. Degenerative facet disease at L4-S1. The paraspinal soft tissues and spinal canal are otherwise unremarkable in appearance. IMPRESSION: No evidence for acute traumatic injury of the lumbar spine. Date of Exam: 09/19/17 PROCEDURE: CT thoracic spine wo con FINDINGS: Alignment of the thoracic spine is normal for the patient's age. There are minimal, age appropriate, degenerative changes within the intervertebral disk and facet joints in the thoracic spine. No fractures are evident in the thoracic spine. The vertebral bodies and facet joints are normally aligned. There is no evidence of significant spinal stenosis, foraminal compromise, epidural hematoma, or significant disk herniation. Mild groundglass opacity in the left upper and lower lobes. Minimal dependent atelectasis. IMPRESSION: No acute traumatic abnormality of the thoracic spine Date of Exam: 09/19/17 PROCEDURE: CHEST 2-VIEWS UPRIGHT (PA & LAT) FINDINGS: Patchy groundglass opacity in the left upper lobe is better seen on CT. Minimal dependent atelectasis. No pleural effusion or pneumothorax. Heart size and mediastinal contours are stable. Pulmonary vascularity is unchanged. Impression: Faint left upper lobe airspace disease suggesting a mild pneumonia Date of Exam: 09/19/17 PROCEDURE: CT head/brain wo con FINDINGS: The ventricles are of normal size, shape, and configuration for the patient's age. There is no evidence of acute intracranial hemorrhage, midline displacement, or mass effect. There are scattered areas of low attenuation in the white matter which most likely represent changes of chronic microvascular ischemia. The CT attenuation of the brain parenchyma is otherwise normal within the cerebellum, brain stem, and cerebral hemispheres. The tympanic cavities and mastoid air cells are free of appreciable disease. There are no definite fractures of the skull base, calvarium, or visualized portion of the midface. IMPRESSION: No CT evidence of acute traumatic intracranial injury. Date of Exam: 09/21/17 PROCEDURE: CHEST 2-VIEWS UPRIGHT (PA & LAT) FINDINGS: The lungs are now clear without evidence of focal abnormal airspace opacity. New trace left effusion. No pneumothorax. The heart size, mediastinal contours and pulmonary vascularity are within normal limits. There is no significant skeletal abnormality. IMPRESSION: Clearance of the left upper lobe opacity. Trace left effusion. History of Present Illness HPI: The patient is an 82-year-old female who was brought to [facility] ED today with chief complaint of shaking chills and fever. The patient fell twice - once yesterday and once today. With the one yesterday she lay on the floor for almost six hours. She was seen here in the ED 48 hours ago and at that time she was found to have UTI and was sent home on oral antibiotics. She has been taking that which has not helped. She thinks her fever is just getting worse. She is having diffuse joint pain pretty much all over from head to toe. She has severe headache. She said she is having shakiness and is also complaining of muscular pain throughout. In the ED today the patient's temperature was as high as 104. Lab did show a CPK of 707, slightly elevated liver function tests. Her UA was pretty consistent with urinary tract infection. For these reasons the patient was admitted to [facility] for inpatient treatment of UTI that has failed outpatient regimen as well as frequent falls. For complete details of the H&P refer to that document. Objective Vital signs: Temperature 97 F 09/25/17 07:34 Pulse Rate 60 09/25/17 07:34 Respiratory Rate 18 09/25/17 07:34 Blood Pressure 171/81 H 09/25/17 07:34 Pulse Oximetry 100 09/25/17 07:34 Height/Weight/BMI: Height 1.52 m Weight 56.7 kg Body Mass Index 24.9 Hospital Course This is a general summary of the patient's hospital course. For more details refer to the complete medical record. Hospital course: 09/19/17 Admit patient to [facility] inpatient under the care of Dr. Phil Chao. The patient will be started on IV fluids as well as IV antibiotics. Follow up on electrolytes in the morning. Diabetic diet has been initiated. The patient needs Physical Therapy and Occupational Therapy consultation in the morning. Blood culture and urine culture are pending at time of dictation. Resume appropriate home medications. 09/20/17 I did discuss patient's clinical situation with Dr. Digna Fiore on the phone. We also talked about the dilemma of patient having E. coli in both urine culture and the bloodstream. The patient has multiple allergies to Levaquin, nitrofurantoin and penicillin. I have started the patient on Rocephin 1 g IV b.i.d. yesterday. Dr. Fiore recommended that we just cut that back to once a day - 1 g q24h. is sufficient according to her recommendation. We also added Zithromax earlier this morning for atypical bacteria due to evidence of pneumonia on chest x-ray. She believes that would be good coverage for now. Will wait for specificity from the culture. She will continue home medications. Will continue IV fluids. Will go ahead change IV fluids to 1/2 NS because she is diabetic and her sugar is creeping up a little bit. I will await the sensitivity for the blood culture and urine culture. Will add Se[place] to pain management because she has quite a lot of generalized pain. We do not have official consultation for Dr. Fiore. Basically, she said to just go ahead and do those recommendations we talked about on the phone. If we get into trouble then we will have her come in for official consultation at that time. She was very generous to give me some advice regarding this patient via telephone communication. 09/21/17 Mrs. Lama is clinically stable with ongoing arthralgias/myalgias which are chronic by report of PCP. Resume home medications including Carafate, Protonix, prednisone, Linzess, Myrbetriq, Plavix, tramadol, and Prozac per patient request or due to clinical stability. Indication for some medications unclear to me at present. Continue to hold metoprolol-patient reports she's only been taking 1/4 of a tablet in the evening. Bradycardic at times. No ongoing fever, white count within normal range with minor left shift. Continue to monitor. 1/2 blood cultures positive after 2 days. Repeat chest x-ray in a.m.-patient was not hypoxic on admission and has not required breathing treatments. Completes 3 days azithromycin 500 mg per day tomorrow. Discontinue methylprednisolone, resume oral prednisone at 20 mg daily and taper back to chronic dose of 5 mg daily over the next 3-5 days. Blood sugar 264-patient denies use of any diabetes medication at home; discontinued glucose infusion, IV steroids undoubtedly contributing to hyperglycemia. Accu-Cheks to be monitored routinely and corrective insulin ordered. A1c in a.m. PT assessment recommended senior care versus home depending on progress made during hospitalization. 09/22/17 Azithromycin through the weekend Placed on methylprednisolone initially for illness, started po taper yesterday. Elevated BS due to steroids. Better now that she is on lower dose steroids. Metoprolol 12.5 mg BID at home held due to bradycardia. BP elevated into 170s this am. Start low dose Norvasc. 09/23/17 Last day for azithromycin. Continue Rocephin. 09/24/17 Continue Rocephin for coverage of E coli - Day #6. Decrease Prednisone to 10mg - home dose 5mg. Start Lovenox for DVT prevention. Encourage ambulation and therapy to help strength. Discussed about possibility of senior care to help increase functional status prior to return home. Patient agreeable - discussed with CM to look into skilled care. 09/25/17 Day 7 of Rocephin - can discontinue. Will continue oral cephalexin 500mg TID for 3 more days. Continue Prednisone 10mg daily for 4 more days, then may decrease to 5mg (her chronic dose). Arrangements made for senior care at [facility] - medically stable for discharge. F/U with Dr Chao at [facility]. See orders for details. Time spent with patient: discharge greater than 30 minutes DVT Prophylaxis: Lovenox Discharge Plan - Discharge Disposition Discharge Date: 09/25/17 Disposition: 03 To SNU Not [facility] [place] *Condition: Improved Reason For Visit (Visit label in EMR): UTI, Failed outpatient treatment - Discharge Medications *Discharge Medications: New Amlodipine [Norvasc] 2.5 mg PO DAILY tab PEG 3350 17gm PACKET [Miralax] 17 gm PO DAILY PRN packet PRN Reason: Constipation PredniSONE [Deltasone] 10 mg PO WB #4 tab Acetaminophen [Tylenol] 650 mg PO Q5H PRN tab PRN Reason: Pain /Fever CephALEXin [Keflex] 500 mg PO TID #12 cap Senna + Docusate [Senna Plus Tablet] 2 tab PO BID PRN tab PRN Reason: Constipation Hydrocodone/APAP 5/325 [Severy 5/325] 1 tab PO Q4H PRN #30 tab PRN Reason: Pain Continue Ondansetron Odt [Zofran Po] 4 mg PO Q4H PRN #60 tab PRN Reason: Nausea &/Or Vomiting Prochlorperazine Maleate [Compazine] 10 mg PO Q6-8HR PRN #30 tab PRN Reason: N/V/CRAMPS Mirabegron [Myrbetriq] 25 mg PO DAILY PredniSONE [Deltasone] 5 mg PO WB Pantoprazole Sodium [Protonix] 40 mg PO DAILY Gabapentin [Neurontin] 400 mg PO HS Tramadol [Ultram] 50 mg PO QID PRN #30 tab PRN Reason: Pain Clopidogrel Bisulfate [Clopidogrel] 75 mg PO DAILY #0 Linaclotide [Linzess] 145 mcg PO DAILY Primidone [Mysoline] 100 mg PO HS FLUoxetine [Prozac] 20 mg PO DAILY Cetirizine [Zyrtec] 1 tab PO DAILY Sucralfate [Carafate] 1 gm PO QID Discontinued Metoprolol Tartrate [Lopressor] 12.5 mg PO BIDWM Furosemide [Lasix] 40 mg PO BID Potassium Chloride 20 meq PO DAILY - Discharge Packet/Instructions *Diet: No added salt, no concentrated sweets *Activity: Walker for assistance. *Pain Management/Treatment: Tylenol, Severy, and tramadol as needed *Wound Care: N/A *Expected Signs/Symptoms: Improvement of strenght and functional status. *Notify Physician if: Temp greater than 100.4. *During Business Hours Contact: Nursing staff at [facility] *After Business Hours Contact: Nursing staff at [facility] *Pending Lab/Results: No Pending Lab - Referrals/Follow Up *Referrals/Follow Up: Phil Chao MD [Family Provider] - (Follow while on skilled care. ) - Patient Handouts Patient Handouts: Urinary Tract Infection in Women (GEN) - Dismissal Complete Discharge Instructions are:: Complete Attestation Narriative - Attestation Attestation Narrative: 09/25/17 12:04 I have independently interviewed and examined patient prior to discharge. See my progress note from today for details. Medically stable for discharge to senior care.
== END 2017-09-25 14:05 | DRG 871 ==
LOC: ED 14:41 → MED 18:06
PROVIDERS: ADMIT Family Medicine; ATTEND Family Medicine